=== PATIENT | male | born 1950 | race Caucasian/White ===

== ENCOUNTER 2021-05-12 14:45 | Outpatient (CLI) | payer MEDICARE, OTHER, SELFPAY ==
--- NOTE | 2021-05-12 15:00 | XR_ITS ---
WS: [id number] LATERAL LUMBAR SPINE: 3 view. Lateral radiographs are performed in upright neutral, flexion and extension to the patient's toleranc e. HISTORY: POSTLAMINECTOMY SYNDROME COMPARISON: None available. Lumbar fusion hardware extends from L2 to L5 bilaterally. No lucency around the screws or fractures w ithin the hardware. Mild increase in the lumbar lordosis. With flexion and extension there is no isaac ge in position of the hardware. Very little movement of the vertebral bodies. There is bone grafting which appears fused. Significant encroachment into the L4-5 and L5-S1 foramina. Moderate calcification in aorta. Very slight anterior wedging of L1. XR/XR lumbar spine f/e only [id number] IMPRESSION: 1. No lumbar spine fusion identified. 2. Extensive posterior lumbar fusion hardware from L2 to L5. 3. Severe bone narrowing of the L4-5 and L5-S1 foramina.
--- NOTE | 2021-05-12 15:00 | CT_ITS ---
WS: [id number] CT LUMBAR SPINE, noncontrast. HISTORY: POSTLAMINECTOMY SYNDROME TECHNIQUE: Contiguous 2.5 mm axial imaging are performed. Sagittal and coronal reformats are submitte d and reviewed. All CT scans at [facility] use at least one of these dose optimization te chniques: automated exposure control; mA and/or kV adjustment per patient size (includes targeted exa ms where dose is matched to clinical indication); or iterative reconstruction. IV contrast: None DLP: 1915.22 mGycm COMPARISON: None available. Status post lumbar fusion from L2 to L5. Bilateral laminectomy defects throughout the fusion. No luce ncy around the pedicle screws. No pedicle fracture identified. Diffuse osteopenia and diffuse disc space narrowing and desiccation with vacuum disc phenomenon at se veral levels. No fractures. Mild LEFT curvature lumbar spine. T12-L1: asymmetric disc bulging to the LEFT. Moderate LEFT foraminal narrowing and mild on the RIGHT. L1-2: 2 mm retrolisthesis of L1 with contact upon the ventral thecal sac. There is annular disc bulgi ng and osteophytic ridging. Large posterior laminectomy defect. Severe bilateral foraminal stenosis. Disc and osteophyte disease contacts the L1 and L2 nerve roots. L2-3: Diffuse osteophytic ridging with facet and ligamentum flavum hypertrophy. Large posterior chris ectomy defect. There is at least moderate bilateral foraminal stenosis. L3-4: Diffuse annular disc bulging and osteophytic ridging. Large posterior laminectomy defect. Moder ate bilateral foraminal stenosis. Bone graft is completely fused. L4-5: Diffuse annular disc bulging and osteophytic ridging. Bone grafting is noted bilaterally and co mpletely fused. Large posterior laminectomy defect. Severe bilateral foraminal stenosis. L5-S1: Mild annular disc bulging and osteophytic ridging. Facet joint osteophytes encroach into the s ubarticular recesses. Large posterior laminectomy defect. Severe bilateral subarticular recess stenos is and moderate foraminal stenosis. Atherosclerosis of the aorta. Mild narrowing of the RIGHT SI joint. CT/CT lumbar spine wo con* [id number] IMPRESSION: 1. Prior posterior lumbar fusion extending from L2 to L5 with large laminectom y defects and fusion of the bone graft material. 2. Multilevel subarticular and foraminal stenosis. 3. Moderate LEFT foraminal stenosis at T12-L1. 4. Severe bilateral foraminal stenosis at L1-2 and L4-5. 5. Severe bilateral subarticular recess stenosis and moderate foraminal stenos is at L5-S1. 6. Moderate bilateral foraminal stenosis L2-3 and L3-4.
== END 2021-05-12 14:46 | disposition home or self-care (01) ==
LOC: RADWPI 14:50
PROVIDERS: PCP Family Medicine Adult Medicine; Visit Provider Nurse Practitioner
DX: M96.1 Postlaminectomy syndrome, not elsewhere classified (principal); M43.26 Fusion of spine, lumbar region; M48.05 Spinal stenosis, thoracolumbar region; M48.061 Spinal stenosis, lumbar region without neurogenic claudication
CPT/HCPCS: 72120; 72131

== ENCOUNTER → 2021-07-07 11:51 | Outpatient (BNVA) | payer MEDICARE, OTHER, SELFPAY | PROVIDERS: PCP Family Medicine Adult Medicine; Visit Provider Urology | DX: Z85.51 Personal history of malignant neoplasm of bladder (principal); D09.0 Carcinoma in situ of bladder | CPT/HCPCS: 81003; 88112 ==

== ENCOUNTER → 2021-07-31 10:35 | Outpatient (BNVA) | payer MEDICARE, OTHER, SELFPAY | PROVIDERS: PCP Family Medicine Adult Medicine; Visit Provider Urology | DX: D09.0 Carcinoma in situ of bladder (principal) | CPT/HCPCS: 81003 ==

== ENCOUNTER → 2021-08-07 10:29 | Outpatient (BNVA) | payer MEDICARE, OTHER, SELFPAY | PROVIDERS: PCP Family Medicine Adult Medicine; Visit Provider Urology | DX: Z85.51 Personal history of malignant neoplasm of bladder (principal); D09.0 Carcinoma in situ of bladder | CPT/HCPCS: 81003 ==

== ENCOUNTER → 2021-08-14 11:03 | Outpatient (BNVA) | payer MEDICARE, OTHER, SELFPAY | PROVIDERS: PCP Family Medicine Adult Medicine; Visit Provider Urology | DX: D09.0 Carcinoma in situ of bladder (principal) | CPT/HCPCS: 81003 ==

== ENCOUNTER → 2021-11-30 08:45 | Outpatient (BNVA) | payer MEDICARE, OTHER, SELFPAY | PROVIDERS: PCP Family Medicine Adult Medicine; Visit Provider Family Medicine Adult Medicine | DX: Z00.00 Encounter for general adult medical examination without abnormal findings (principal); I25.10 Atherosclerotic heart disease of native coronary artery without angina pectoris; J44.9 Chronic obstructive pulmonary disease, unspecified; D09.0 Carcinoma in situ of bladder; Z13.6 Encounter for screening for cardiovascular disorders; K64.9 Unspecified hemorrhoids | CPT/HCPCS: 80061; 83036; 84443; 85025 ==

== ENCOUNTER → 2022-01-08 11:22 | Outpatient (BNVA) | payer MEDICARE, OTHER, SELFPAY | PROVIDERS: PCP Family Medicine Adult Medicine; Visit Provider Surgery | DX: Z11.52 Encounter for screening for COVID-19 (principal) | CPT/HCPCS: 87635 ==

== ENCOUNTER 2022-01-13 08:29 | Day surgery (SDC) | payer MEDICARE, OTHER, SELFPAY ==
[2022-01-08 13:15] VITALS: BMI 27.0
--- NOTE | 2022-01-13 09:35 | P.ANESASSM_ITS ---
Pre-Anesthetic Assessment Height/Weight: Height 1.85 m Weight 92.986 kg Preop Diagnosis: diagnostic Operation Date: 01/13/22 10:00 Proposed Procedures p Colonoscopy 85985 K59.09(Not Applicable) - Alejandro Fatima MD Was Beta Adela taken within 24 hours: N/A Was Clonidine taken within 24 hours: N/A Social Tobacco and No alcohol Exam alert, oriented x 3, clear to auscultation bilaterally and regular rate & rhythm Airway Submandibular: within normal limits Cervical ROM: within normal limits Mallampati: Class II Dentition: full (Permanent implants) Pulmonary Chronic Obstructive Pulmonary Disease CV/HEM S/P CABG METS > 4 BPH GI None reported Metabolic None reported Musc/skel DDD Neuropsych None reported Anesthetic Plan ASA status: 3 Anesthesia: Anesthesia Evaluation and General Other: I discussed with the patient risks, goals, and benefits of MAC and general anesthesia. We discussed spectrum of MAC anesthesia including conversion to general as well as possibility of recall of intraoperative stimuli including discomfort/pain. Patient agrees to proceed with MAC. Risk of > 500 ml blood loss (7ml/kg in children): No Medications/Allergies Home Medications Medication Instructions Recorded Confirmed Last Taken Type tadalafil 2.5 mg tablet (Cialis) 2.5 mg PO DAILY 04/10/21 01/08/22 Unknown History oxycodone-acetaminophen 10 mg-325 1 tab PO Q6H tab 07/07/21 01/08/22 Unknown History mg tablet (Percocet) ascorbic acid (vitamin C) 1,000 mg PO DAILY 08/18/21 01/08/22 Unknown History new wave 1 tab PO DAILY 08/18/21 01/08/22 Unknown History tamsulosin 0.4 mg capsule (Flomax) 0.4 mg PO DAILY #90 cap 08/18/21 01/08/22 Unknown Rx tizanidine 4 mg capsule 4 mg PO BID PRN #60 cap 08/18/21 01/08/22 Unknown Rx diclofenac sodium 1 % topical gel 2 g TOPICAL QID 11/30/21 01/08/22 Unknown History (Voltaren Arthritis Pain) lactulose 10 gram/15 mL (15 mL) 15 ml PO BID 7 Days #210 ml 12/15/21 01/08/22 Unknown Rx oral solution fluticasone propionate 50 See Rx Instructions .ROUTE 12/29/21 01/08/22 Unknown Rx mcg/actuation nasal .COMPLEX #48 g spray,suspension Allergies Allergy/AdvReac Type Severity Reaction Status Date / Time No Known Allergies Allergy Verified 01/08/22 13:17 [facility] Anesthesia Medical History Allergic rhinitis BPH (benign prostatic hyperplasia) CAD (coronary atherosclerotic disease) 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 No muscle involvement. BCG induction therapy with resulting granulomatous cystitis on biopsy. At first evaluation June 2021 here had received no maintenance therapy as of yet. Chronic constipation Chronic low back pain COPD (chronic obstructive pulmonary disease) Dupuytren's contracture of right hand Hemorrhoids Migraine Osteoarthritis involving multiple joints on both sides of body Pre-diabetes Hemoglobin A1c on 11/30/2021 was 5.7 Spondylolysis Surgical History History of back surgery History of colonoscopy History of ear surgery Hx of hand surgery S/P CABG (coronary artery bypass graft) Family History Father , AT AGE 74 HEART ATTACK CAD (coronary artery disease) Mother , AT AGE 93 VAGINAL CANCER Cancer Social History Smoking and tobacco status: current every day smoker (E-CIG 3% NICOTINE) e- cigarettes Alcohol intake: current Alcohol intake frequency: holidays/special occasions only Marital status: Number of children: 2 Number of grandchildren: 6 Current occupational status: retired History of recent travel: No Data Anesthesia Cardiac Studies: No Data to Display
[2022-01-13 09:42] VITALS: BP 128/80; PULSE 74; RESP 18; TEMP 36.4; O2SAT 97
[2022-01-13] MEDS: sodium chloride 0.9% 1,000 ML 30 ML IV (09:45)
--- NOTE | 2022-01-13 10:09 | P.HP_ITS ---
Same Day Surgery H&P Indication for Procedure/HPI DATE OF PROCEDURE: January 13, 2022 CHIEF COMPLAINT/INDICATIONFOR SURGICAL PROCEDURE: screening PREOP DIAGNOSIS: diagnostic PLANNED PROCEDURE: Operation Date: 01/13/22 10:00 Proposed Procedures p Colonoscopy 72721 K59.09(Not Applicable) - Alejandro Fatima MD Medications/Allergies* Home Medications Medication Instructions Recorded Confirmed Type tadalafil 2.5 mg tablet (Cialis) 2.5 mg PO DAILY 04/10/21 01/08/22 History oxycodone-acetaminophen 10 mg-325 1 tab PO Q6H tab 07/07/21 01/08/22 History mg tablet (Percocet) ascorbic acid (vitamin C) 1,000 mg PO DAILY 08/18/21 01/08/22 History new wave 1 tab PO DAILY 08/18/21 01/08/22 History diclofenac sodium 1 % topical gel 2 g TOPICAL QID 11/30/21 01/08/22 History (Voltaren Arthritis Pain) Allergies/Adverse Reactions Allergy/AdvReac Type Severity Reaction Status Date / Time No Known Allergies Allergy Verified 01/13/22 09:43 Current Medications: Generic Name Dose Route Start Last Admin Trade Name Freq PRN Reason Stop Dose Admin Sodium Chloride 1,000 mls @ 30 mls/hr 01/13/22 08:45 01/13/22 09:45 Sodium Chloride 0.9% IV 01/14/22 08:44 30 mls/hr .Q24H DAR Administration Pertinent History/Comorbid Conditions* Medical History (Updated 12/29/21 @ 08:51 by Vishnu Bender MD) Allergic rhinitis BPH (benign prostatic hyperplasia) CAD (coronary atherosclerotic disease) 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 No muscle involvement. BCG induction therapy with resulting granulomatous cystitis on biopsy. At first evaluation June 2021 here had received no maintenance therapy as of yet. Chronic constipation Chronic low back pain COPD (chronic obstructive pulmonary disease) Dupuytren's contracture of right hand Hemorrhoids Migraine Osteoarthritis involving multiple joints on both sides of body Pre-diabetes Hemoglobin A1c on 11/30/2021 was 5.7 Spondylolysis Surgical History (Updated 12/15/21 @ 09:16 by Alejandro Fatima MD) History of back surgery History of colonoscopy History of ear surgery Hx of hand surgery S/P CABG (coronary artery bypass graft) Family History (Updated 07/07/21 @ 09:39 by PRAFUL Nuñez) Father, AT AGE 74 HEART ATTACK Mother, AT AGE 93 VAGINAL CANCER CAD (coronary artery disease) Father Cancer Mother Social History Smoking and tobacco status: current every day smoker (E-CIG 3% NICOTINE) e- cigarettes Alcohol intake: current Alcohol intake frequency: holidays/special occasions only Marital status: Number of children: 2 Number of grandchildren: 6 Current occupational status: retired History of recent travel: No Pertinent Exam Findings alert, oriented x 3 and regular rate & rhythm Recommendations Surgery/Procedure today Coding Level of Care Code Acute 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
[2022-01-13 10:49] VITALS: BP 89/64; PULSE 61; RESP 14; TEMP 36.7; O2SAT 96
[2022-01-13 11:05] VITALS: BP 117/77; PULSE 63; RESP 18
--- NOTE | 2022-01-13 16:17 | ANE.PACU2 ---
Inpatient post-anesthesia follow up: Airway intact: Yes Vital signs: Temperature 98.1 F Pulse Rate 63 Respiratory Rate 18 Blood Pressure 117/77 Pulse Oximetry 96 Oxygen Delivery Me thod Room Air Oxygen Flow Rate 2 Fraction of Inspir ed Oxygen Hydration adequate: Yes Nausea and vomiting: No Pain level: 1 Mental status: Baseline
== END 2022-01-13 11:16 | disposition home or self-care (01) ==
PROVIDERS: PCP Family Medicine Adult Medicine; Visit Provider Surgery
PROC: 0DJD8ZZ Inspection of Lower Intestinal Tract, Via Natural or Artificial Opening Endoscopic (ICD-10-PCS; CPT 45330; 2022-01-13 10:00)
DX: Z12.11 Encounter for screening for malignant neoplasm of colon (principal); K59.09 Other constipation; J44.9 Chronic obstructive pulmonary disease, unspecified; Z95.1 Presence of aortocoronary bypass graft; N40.0 Benign prostatic hyperplasia without lower urinary tract symptoms; I25.10 Atherosclerotic heart disease of native coronary artery without angina pectoris; R73.03 Prediabetes; F17.210 Nicotine dependence, cigarettes, uncomplicated
CPT/HCPCS: 45330; G0121; J7030

== ENCOUNTER 2022-06-28 12:42 | Outpatient (CLI) | payer MEDICARE, OTHER, SELFPAY ==
--- NOTE | 2022-06-28 13:30 | USCV_ITS ---
Kolton Dial Age: 71 Gender: M : 1950 Exam Date: 06/28/2022 13:01 Ordering Phys: Vishnu Bender MD Technologist: Sathish Hanson [place] [facility] [place]: left neck pain Risk Factors: Previous Vascular Surgery: Right Brachial BP: / Left Brachial BP: / Right Left Velocity (cm/s) Spectral Plaque Velocity (cm/s) Spectral Plaque Syst/Diast Broadening Syst/Diast Broadening 121.30/23.20 Prox CCA 85.30 / 21.00 75.00/ 20.90 Mid CCA 71.10 / 23.00 59.80/ 18.60 Distal CCA 55.90 / 21.00 63.70/ 20.20 Prox ICA 74.60 / 24.10 96.30/ 41.90 Mid ICA 74.60 / 27.20 88.60/ 32.60 Distal ICA 69.10 / 26.40 82.30 ECA 81.60 0.79 ICA/CCA 0.87 Antegrade Vertebral Antegrade 45.90/ 17.10 cm/s 34.60/ 10.30 cm/s Tri Subclavian Tri 74.30 82.20 CONCLUSIONS Right ICA stenosis <50%. Moderate atheromatous plaque right carotid bulb/ICA. Left ICA stenosis <50%. Moderate atheromatous plaque left carotid bulb/ICA. Normal antegrade Doppler flow noted in the right vertebral artery. Normal antegrade Doppler flow noted in the left vertebral artery. Randy Sifuentes MD (Electronically Signed) Final Date: 28 June 2022 13:43 S
== END 2022-06-28 12:43 | disposition home or self-care (01) ==
PROVIDERS: PCP Family Medicine Adult Medicine; Visit Provider Family Medicine Adult Medicine
DX: R09.89 Other specified symptoms and signs involving the circulatory and respiratory systems (principal); M54.2 Cervicalgia; I65.23 Occlusion and stenosis of bilateral carotid arteries
CPT/HCPCS: 93880

== ENCOUNTER → 2022-10-06 09:11 | Outpatient (BNVA) | payer MEDICARE, OTHER, SELFPAY | PROVIDERS: PCP Family Medicine Adult Medicine; Visit Provider Family Medicine Adult Medicine | DX: R73.03 Prediabetes (principal); I25.10 Atherosclerotic heart disease of native coronary artery without angina pectoris; K64.9 Unspecified hemorrhoids | CPT/HCPCS: 80053; 83036; 84443; 85025 ==

== ENCOUNTER → 2022-12-30 08:24 | Outpatient (BNVA) | payer MEDICARE, OTHER, SELFPAY | PROVIDERS: PCP Family Medicine Adult Medicine; Visit Provider Family Medicine Adult Medicine | DX: N40.1 Benign prostatic hyperplasia with lower urinary tract symptoms (principal); N13.8 Other obstructive and reflux uropathy; D09.0 Carcinoma in situ of bladder; K64.9 Unspecified hemorrhoids; R73.03 Prediabetes; I25.10 Atherosclerotic heart disease of native coronary artery without angina pectoris; M15.9 Polyosteoarthritis, unspecified; G89.29 Other chronic pain; M25.552 Pain in left hip | CPT/HCPCS: 80053; 80061; 82310; 83036; 83970; 85025 ==

== ENCOUNTER → 2023-01-26 11:37 | Outpatient (BNVA) | payer MEDICARE, OTHER, SELFPAY | PROVIDERS: PCP Family Medicine Adult Medicine; Visit Provider Emergency Medicine | DX: N19 Unspecified kidney failure (principal); R59.9 Enlarged lymph nodes, unspecified; R22.1 Localized swelling, mass and lump, neck; C67.9 Malignant neoplasm of bladder, unspecified; R59.0 Localized enlarged lymph nodes; R30.0 Dysuria | CPT/HCPCS: 80053; 81000; 85025 ==

== ENCOUNTER 2023-02-14 06:20 | Outpatient (CLI) | payer MEDICARE, OTHER, SELFPAY ==
--- NOTE | 2023-02-14 07:00 | CT_ITS ---
WS: [id number] CT CHEST, ABDOMEN, AND PELVIS TECHNIQUE: Contrast-enhanced CT of the chest, abdomen, and pelvis with coronal and sagittal reformatt ed images. CLINICAL INFORMATION: bladder cancer, enlarged lymph nodes COMPARISON: None. DLP: 828.[address] scans at [facility] use at least one of these dose optimization techniques: automated e xposure control; mA and/or kV adjustment per patient size (includes targeted exams where dose is matc hed to clinical indication); or iterative reconstruction. CT CHEST: Ectatic ascending thoracic aorta measuring 3.5 CM. Enlarged lymph nodes in the LEFT lower neck descri bed on the neck CT. This extends to the thoracic inlet. Enlarged prevascular and anterior mediastinal lymph nodes. No axillary lymphadenopathy. Coronary calcification. Prior sternotomy. Chronic emphysematous changes. No acute pulmonary infiltrates. Subsegmental atelectasis in the lung b ases. CT ABDOMEN AND PELVIS: Diffuse fatty infiltration the liver. Mild intrahepatic biliary ductal dilatation. Normal portal vein and splenic vein. A few tiny hepatic cysts. Some are too small characterize but. Common bile duct me asures 10 mm. Fatty atrophy of the pancreas. Splenic artery calcification. Normal spleen. Normal GE j unction. Enlarged LEFT periaortic and retroperitoneal lymph nodes measuring 2.4 CM. Enlarged aortocaval lymph node measuring 2.4 CM. Adrenal glands are normal. Small renal cysts. No hydronephrosis in either kidn ey. Enlarged heterogeneously enhancing prostate. Peripherally enhancing low-attenuation prostate nodules or possibly multifocal abscess. Recommend correlation for prostatitis versus neoplasm. Bladder otherw ise appears normal. Markedly enlarged iliac and pelvic lymphadenopathy. This is worse in the RIGHT. R IGHT pelvic lymph node measures 4.1 CM. RIGHT iliac lymphadenopathy measuring 2.8 cm. Postoperative changes pedicle screw fixation lumbar spine L2-L5 with laminectomy defects. CT/CT chest abdpel w/*[id number] IMPRESSION: 1. Prostate with multifocal peripheral enhancing nodules suspicious for neopla sm. Superimposed prostatitis with multifocal abscess is an additional considera tion. Recommend clinical correlation. 2. Periaortic, aortocaval, RIGHT greater than LEFT iliac and pelvic lymphadeno orlando described above. 3. Diffuse fatty infiltration liver with mild intrahepatic biliary dilatation. Dilatation common bile duct measuring 10 mm. This can be followed up with MRCP . 4. Bladder appears normal. 5. Enlarged prevascular and anterior mediastinal lymph nodes.
[2023-02-14] MEDS: iohexol 350 mg/mL 500 mL Btl (per mL) IV ×2 (07:02→07:14)
--- NOTE | 2023-02-14 07:30 | CT_ITS ---
WS: [id number] CT NECK TECHNIQUE: Contrast-enhanced CT of the neck with coronal and sagittal reformatted images. CLINICAL INFORMATION: neck mass bladder cancer. COMPARISON: None. DLP: 168.[address] scans at [facility] use at least one of these dose optimization techniques: automated e xposure control; mA and/or kV adjustment per patient size (includes targeted exams where dose is matc hed to clinical indication); or iterative reconstruction. FINDINGS: Enlarged peripherally enhancing LEFT posterior triangle and supraclavicular lymph nodes. This corresp onds with area of palpable concern. Largest lymph nodes measure approximately 6.7 CM. Additional infr aclavicular lymph nodes. Prominent anterior mediastinal lymph node measuring 6 mm. Findings suspiciou s for metastatic disease. Enlarged lymph nodes extend to the thoracic inlet. RIGHT mastoid air cells well aerated.Paranasal Sinuses are well aerated. No evidence of supraglottic or glottic mass. Parotid glands are normal. Normal submandibular glands. Straightening of the normal cervical lordosis. Moderate spondylitic changes cervical spine. CT/CT neck w con* [id number] IMPRESSION: Enlarged heterogeneously enhancing lymph nodes in the area of palpable concern extends supraclavicular and infraclavicular to the thoracic inlet. Given histor y findings are suspicious for metastatic disease.
== END 2023-02-14 06:21 | disposition home or self-care (01) ==
LOC: RAD 06:22
PROVIDERS: PCP Family Medicine Adult Medicine; Visit Provider Emergency Medicine
DX: C67.9 Malignant neoplasm of bladder, unspecified (principal); K76.0 Fatty (change of) liver, not elsewhere classified; R59.0 Localized enlarged lymph nodes
CPT/HCPCS: 70491; 71260; 74177; Q9967

== ENCOUNTER → 2023-02-22 14:24 | Outpatient (BNVA) | payer MEDICARE, OTHER, SELFPAY | PROVIDERS: PCP Family Medicine Adult Medicine; Visit Provider Family Medicine Adult Medicine | DX: D09.0 Carcinoma in situ of bladder (principal); R59.9 Enlarged lymph nodes, unspecified | CPT/HCPCS: 88307; 88341; 88342 ==

== ENCOUNTER → 2023-03-04 07:19 | Outpatient (BNVA) | payer MEDICARE, OTHER, SELFPAY | PROVIDERS: PCP Family Medicine Adult Medicine; Visit Provider Family Medicine Adult Medicine | DX: R31.9 Hematuria, unspecified (principal); N40.3 Nodular prostate with lower urinary tract symptoms; N13.8 Other obstructive and reflux uropathy; C77.0 Secondary and unspecified malignant neoplasm of lymph nodes of head, face and neck; N40.1 Benign prostatic hyperplasia with lower urinary tract symptoms | CPT/HCPCS: 81000; 86140; G0103 ==

== ENCOUNTER 2023-03-09 10:47 | Oncology outpatient (recurring) (ONCR) | payer MEDICARE, OTHER, SELFPAY ==
[2023-03-09 13:01] LABS: Add Urine Microscopic? YES; Bilirubin Urine Neg (Negative); Blood Urine 3+ (Negative); Glucose Urine UA Norm (Normal); Ketones Urine Negative (Negative); Leukocyte Esterase Urine Negative (Negative); Nitrate Urine Negative (Negative); Protein Urine Neg (Negative); Specific Gravity, Urine 1.015 (1.005-1.030); Urine Appearance Clear (CLEAR); Urine Color Yellow (Yellow); Urobilinogen Urine Neg (Negative); pH Urine 5 (5-7)
[2023-03-09 13:24] LABS: Add Urine Culture? Yes; Bacteria Urine TRACE /hpf; Mucus Urine TRACE /hpf; RBC Urine 15-25 /hpf (0-2); Squamous Epithelial Cell Urine 0-4 /hpf (0-5); WBC Urine 0-4 /hpf (0-5)
[2023-03-09 13:46] LABS: Carcinoembryonic Antigen 2.8 ng/mL (0.0-4.7); HCG Tumor Marker 1 mIU/mL (0-3); Tumor Marker Alpha Fetoprotein 3.4 ng/mL (0-8.3)
[2023-03-09 14:19] LABS: Cancer Antigen 19 9 4.76 U/mL (0-35)
== END 2023-03-27 23:59 | disposition home or self-care (01) ==
PROVIDERS: PCP Family Medicine Adult Medicine; Visit Provider Internal Medicine Hematology & Oncology
DX: C77.0 Secondary and unspecified malignant neoplasm of lymph nodes of head, face and neck (principal); C67.9 Malignant neoplasm of bladder, unspecified; Z90.6 Acquired absence of other parts of urinary tract; N40.1 Benign prostatic hyperplasia with lower urinary tract symptoms; R30.0 Dysuria; N41.8 Other inflammatory diseases of prostate; K76.0 Fatty (change of) liver, not elsewhere classified; K82.8 Other specified diseases of gallbladder; R97.8 Other abnormal tumor markers; Z79.2 Long term (current) use of antibiotics; Z79.899 Other long term (current) drug therapy
CPT/HCPCS: 36415; 81001; 82105; 82378; 84702; 86301; 87086; 99204

== ENCOUNTER 2023-04-07 10:45 | Oncology outpatient (recurring) (ONCR) | payer MEDICARE, OTHER, SELFPAY ==
[2023-04-07 09:44] LABS: Basophils % 0.9 %; Eosinophils # 0.2 10^3/uL (0.0-0.8); Eosinophils % 3.3 %; Hematocrit 41.9 % (42.0-52.0); Hemoglobin 13.2 g/dL (11.7-16.6); Lymphocytes # 0.8 10^3/uL (0.8-4.8); Lymphocytes % 17.6 %; Mean Corpuscular HGB Conc 31.5 g/dL (30.0-36.0); Mean Corpuscular Hemoglobin 30.1 pg (28.0-34.0); Mean Corpuscular Volume 95.7 fl (80-94); Mean Platelet Volume 10.1 fL (7.4-10.4); Monocytes # 0.5 10^3/uL (0.2-0.9); Monocytes % 10.1 %; Neutrophils # 3.08 10^3/uL (1.8-7.7); Neutrophils % 67.7 %; Nucleated Red Blood Cells % 0 %; Platelet Count 226 10^3/cmm (130-400); Red Blood Count 4.38 10^6/uL (4.1-5.3); Red Cell Distribution Width 12.3 % (12.1-15.1); White Blood Count 4.6 10^3/uL (4.0-10.0)
[2023-04-07 09:56] LABS: Alanine Aminotransferase 9 U/L (0-41); Albumin Level 4.1 g/dL (3.5-5.2); Alkaline Phosphatase 87 U/L (40-130); Anion Gap 11.5 (5-19); Aspartate Amino Transferase 13 U/L (0-40); Blood Urea Nitrogen 20 mg/dL (8-23); Calcium 9.1 mg/dL (8.5-10.5); Carbon Dioxide 27 mmol/L (22-29); Chloride 102 mmol/L (98-107); Globulin 2.8 g/dL (1.3-4.6); Glucose 86 mg/dL (65-115); Osmolality Calculated 284 mOsm/kg (285-295); Potassium 4.5 mmol/L (3.5-5.1); Sodium 136 mmol/L (136-145); Total Bilirubin 0.3 mg/dL (0.15-1.2); Total Protein 6.9 g/dL (6.6-8.7)
== END 2023-04-27 23:59 | disposition home or self-care (01) ==
PROVIDERS: PCP Family Medicine Adult Medicine; Visit Provider Internal Medicine Hematology & Oncology
DX: C67.9 Malignant neoplasm of bladder, unspecified (principal); C77.8 Secondary and unspecified malignant neoplasm of lymph nodes of multiple regions; C68.8 Malignant neoplasm of overlapping sites of urinary organs; R39.198 Other difficulties with micturition; R30.0 Dysuria; F17.210 Nicotine dependence, cigarettes, uncomplicated
CPT/HCPCS: 36415; 80053; 85025; 99214

== ENCOUNTER 2023-05-10 08:13 | Oncology outpatient (recurring) (ONCR) | payer MEDICARE, OTHER, SELFPAY ==
[2023-05-10 08:29] VITALS: BP 115/82; PULSE 88; RESP 18; TEMP 36.1; O2SAT 96
[2023-05-10 08:45] LABS: Basophils % 0.4 %; Eosinophils # 0.1 10^3/uL (0.0-0.8); Eosinophils % 2.6 %; Hematocrit 38.8 % (42.0-52.0); Lymphocytes # 0.8 10^3/uL (0.8-4.8); Lymphocytes % 18.2 %; Mean Corpuscular HGB Conc 33.5 g/dL (30.0-36.0); Mean Corpuscular Hemoglobin 31.2 pg (28.0-34.0); Monocytes # 0.4 10^3/uL (0.2-0.9); Monocytes % 7.8 %; Neutrophils # 3.25 10^3/uL (1.8-7.7); Neutrophils % 70.4 %; Nucleated Red Blood Cells % 0 %; Platelet Count 219 10^3/cmm (130-400); Red Blood Count 4.17 10^6/uL (4.1-5.3); Red Cell Distribution Width 13.2 % (12.1-15.1); White Blood Count 4.6 10^3/uL (4.0-10.0)
[2023-05-10 09:20] LABS: Alanine Aminotransferase 13 U/L (0-41); Albumin Level 3.8 g/dL (3.5-5.2); Alkaline Phosphatase 86 U/L (40-130); Anion Gap 15.2 (5-19); Aspartate Amino Transferase 16 U/L (0-40); Blood Urea Nitrogen 21 mg/dL (8-23); Calcium 9.2 mg/dL (8.5-10.5); Carbon Dioxide 23 mmol/L (22-29); Chloride 103 mmol/L (98-107); Globulin 2.9 g/dL (1.3-4.6); Glucose 92 mg/dL (65-115); Immunoglobulin IGG 784 mg/dL (700-1600); Osmolality Calculated 287 mOsm/kg (285-295); Potassium 4.2 mmol/L (3.5-5.1); Sodium 137 mmol/L (136-145); Thyroid Stimulating Hormone 1.43 uIU/mL (0.27-4.20); Total Bilirubin 0.4 mg/dL (0.15-1.2); Total Protein 6.7 g/dL (6.6-8.7)
[2023-05-10 09:27] LABS: Cortisol Random 11.83 ug/dL (2.47-19.5); Hepatitis A Antibody IgM Non-Reactive (Nonreactive); Hepatitis B Core AB, Total Non-Reactive (Nonreactive); Hepatitis B Surface Antigen Non-Reactive (Nonreactive); Hepatitis C Virus Antibody Non-Reactive (Nonreactive)
[2023-05-10 09:32] LABS: Hepatitis B Surface AB < 3.5 (11.5-1000)
[2023-05-10] MEDS: sodium chloride 0.9% 250 ML 75 ML IV (11:23)
[2023-05-10] MEDS: acetaminophen 325 mg Tablet 650 MG PO (11:24)
[2023-05-10] MEDS: diphenhydrAMINE 25 mg Capsule PO (11:24)
[2023-05-10] MEDS: famotidine 20 mg/2 mL INJ IVP (11:26)
[2023-05-10] MEDS: ondansetron 2 mg/ML SDV 2 mL 8 MG IVP (11:27)
[2023-05-10] MEDS: pembrolizumab 200 MG in sodium chloride 0.9% 250 ML 516 MG IV (12:03)
[2023-05-10] MEDS: [UNRECOGNIZED DRUG - MIXTURE] 500 MG IV (12:49)
[2023-05-10 13:30] VITALS: BP 113/70; PULSE 65; TEMP 36.2; O2SAT 95
== END 2023-05-10 23:59 | disposition home or self-care (01) ==
PROVIDERS: PCP Family Medicine Adult Medicine; Visit Provider Internal Medicine Hematology & Oncology
DX: C67.9 Malignant neoplasm of bladder, unspecified (principal); C77.8 Secondary and unspecified malignant neoplasm of lymph nodes of multiple regions; C67.8 Malignant neoplasm of overlapping sites of bladder; F17.210 Nicotine dependence, cigarettes, uncomplicated; Z79.899 Other long term (current) drug therapy
CPT/HCPCS: 80053; 82533; 82784; 84443; 85025; 86705; 86706; 86709; 86803; 87340; 96375; 96413; 96417; 99215; J1100; J1642; J2405; J3490; J7050; J9177; J9271

== ENCOUNTER 2023-05-17 09:56 | Oncology outpatient (recurring) (ONCR) | payer MEDICARE, OTHER, SELFPAY ==
[2023-05-16 14:01] VITALS: BP 118/81; PULSE 97; RESP 18; TEMP 36.7; O2SAT 95
[2023-05-16 14:10] LABS: Basophils % 0.5 %; Eosinophils # 0.2 10^3/uL (0.0-0.8); Eosinophils % 3.1 %; Hemoglobin 12.6 g/dL (11.7-16.6); Lymphocytes # 0.9 10^3/uL (0.8-4.8); Mean Corpuscular HGB Conc 32.3 g/dL (30.0-36.0); Mean Corpuscular Hemoglobin 30.3 pg (28.0-34.0); Mean Corpuscular Volume 93.8 fl (80-94); Monocytes # 0.5 10^3/uL (0.2-0.9); Monocytes % 8.7 %; Neutrophils # 4.42 10^3/uL (1.8-7.7); Neutrophils % 72.9 %; Nucleated Red Blood Cells % 0 %; Platelet Count 216 10^3/cmm (130-400); Red Blood Count 4.16 10^6/uL (4.1-5.3); Red Cell Distribution Width 13.1 % (12.1-15.1); White Blood Count 6.1 10^3/uL (4.0-10.0)
[2023-05-16 14:38] LABS: Alanine Aminotransferase 18 U/L (0-41); Albumin Level 3.7 g/dL (3.5-5.2); Alkaline Phosphatase 87 U/L (40-130); Anion Gap 15.2 (5-19); Aspartate Amino Transferase 21 U/L (0-40); Blood Urea Nitrogen 22 mg/dL (8-23); Calcium 9.3 mg/dL (8.5-10.5); Carbon Dioxide 25 mmol/L (22-29); Chloride 104 mmol/L (98-107); Glucose 100 mg/dL (65-115); Osmolality Calculated 293 mOsm/kg (285-295); Potassium 4.2 mmol/L (3.5-5.1); Sodium 140 mmol/L (136-145); Thyroid Stimulating Hormone 0.86 uIU/mL (0.27-4.20); Total Bilirubin 0.5 mg/dL (0.15-1.2); Total Protein 6.7 g/dL (6.6-8.7)
[2023-05-17 11:03] VITALS: BP 125/74; PULSE 62; RESP 18; TEMP 36.6; O2SAT 95
[2023-05-17] MEDS: acetaminophen 325 mg Tablet 650 MG PO (11:30)
[2023-05-17] MEDS: diphenhydrAMINE 25 mg Capsule PO (11:30)
[2023-05-17] MEDS: sodium chloride 0.9% 250 ML 75 ML IV (11:30)
[2023-05-17] MEDS: famotidine 20 mg/2 mL INJ IVP (11:32)
[2023-05-17] MEDS: palonosetron 0.25 mg/5 mL SDV IVP (11:35)
[2023-05-17] MEDS: [UNRECOGNIZED DRUG - MIXTURE] 500 MG IV (12:20)
[2023-05-17 13:06] VITALS: BP 149/70; PULSE 65; RESP 16; TEMP 36; O2SAT 95
== END 2023-05-17 23:59 | disposition home or self-care (01) ==
PROVIDERS: Nurse Practitioner Family; PCP Family Medicine Adult Medicine; Visit Provider Internal Medicine Hematology & Oncology
DX: C67.8 Malignant neoplasm of overlapping sites of bladder (principal); C77.8 Secondary and unspecified malignant neoplasm of lymph nodes of multiple regions; Z79.899 Other long term (current) drug therapy; Z51.11 Encounter for antineoplastic chemotherapy; Z45.2 Encounter for adjustment and management of vascular access device
CPT/HCPCS: 36591; 80053; 84443; 85025; 96367; 96375; 96413; 99214; J1100; J1642; J2469; J3490; J7050; J9177

== ENCOUNTER 2023-06-01 07:41 | Oncology outpatient (recurring) (ONCR) | payer MEDICARE, OTHER, SELFPAY ==
[2023-06-01 07:42] VITALS: BP 118/78; PULSE 93; RESP 18; TEMP 36.2; O2SAT 96
[2023-06-01 07:55] LABS: Basophils # 0.1 10^3/uL (0.0-0.1); Basophils % 1.3 %; Eosinophils # 0.1 10^3/uL (0.0-0.8); Eosinophils % 3.5 %; Hematocrit 37.9 % (42.0-52.0); Hemoglobin 12.5 g/dL (11.7-16.6); Lymphocytes # 1.1 10^3/uL (0.8-4.8); Lymphocytes % 30.1 %; Mean Platelet Volume 10.3 fL (7.4-10.4); Monocytes # 0.4 10^3/uL (0.2-0.9); Monocytes % 11.7 %; Neutrophils # 1.97 10^3/uL (1.8-7.7); Neutrophils % 52.3 %; Nucleated Red Blood Cells % 0 %; Platelet Count 244 10^3/cmm (130-400); Red Blood Count 4.03 10^6/uL (4.1-5.3); Red Cell Distribution Width 13.2 % (12.1-15.1); White Blood Count 3.8 10^3/uL (4.0-10.0)
[2023-06-01 09:10] LABS: Alanine Aminotransferase 16 U/L (0-41); Albumin Level 3.6 g/dL (3.5-5.2); Alkaline Phosphatase 80 U/L (40-130); Anion Gap 13.3 (5-19); Aspartate Amino Transferase 15 U/L (0-40); Blood Urea Nitrogen 16 mg/dL (8-23); Calcium 8.9 mg/dL (8.5-10.5); Carbon Dioxide 25 mmol/L (22-29); Chloride 104 mmol/L (98-107); Globulin 2.7 g/dL (1.3-4.6); Glucose 99 mg/dL (65-115); Osmolality Calculated 287 mOsm/kg (285-295); Potassium 4.3 mmol/L (3.5-5.1); Sodium 138 mmol/L (136-145); Thyroid Stimulating Hormone 4.16 uIU/mL (0.27-4.20); Total Bilirubin 0.3 mg/dL (0.15-1.2); Total Protein 6.3 g/dL (6.6-8.7)
[2023-06-01 09:48] VITALS: BP 120/76; PULSE 75; RESP 18; TEMP 36.4; O2SAT 99
[2023-06-01] MEDS: sodium chloride 0.9% 250 ML 75 ML IV (10:03)
[2023-06-01] MEDS: ondansetron 2 mg/ML SDV 2 mL 8 MG IVP (10:04)
[2023-06-01] MEDS: diphenhydrAMINE 25 mg Capsule PO (10:08)
[2023-06-01] MEDS: acetaminophen 325 mg Tablet 650 MG PO (10:08)
[2023-06-01] MEDS: famotidine 20 mg/2 mL INJ IVP (10:11)
[2023-06-01] MEDS: pembrolizumab 200 MG in sodium chloride 0.9% 250 ML 516 MG IV (10:39)
[2023-06-01] MEDS: [UNRECOGNIZED DRUG - MIXTURE] 500 MG IV (11:21)
[2023-06-01 12:27] VITALS: PULSE 68; RESP 16; TEMP 35.8; O2SAT 96
== END 2023-06-01 23:59 | disposition home or self-care (01) ==
PROVIDERS: Nurse Practitioner Family; PCP Family Medicine Adult Medicine; Visit Provider Internal Medicine Hematology & Oncology
DX: C67.8 Malignant neoplasm of overlapping sites of bladder (principal); Z90.6 Acquired absence of other parts of urinary tract; C77.8 Secondary and unspecified malignant neoplasm of lymph nodes of multiple regions; N40.2 Nodular prostate without lower urinary tract symptoms; Z51.12 Encounter for antineoplastic immunotherapy; D72.819 Decreased white blood cell count, unspecified; Z79.899 Other long term (current) drug therapy
CPT/HCPCS: 80053; 84443; 85025; 96367; 96375; 96413; 96417; 99214; J1100; J1642; J2405; J3490; J7050; J9177; J9271

== ENCOUNTER 2023-06-08 09:35 | Oncology outpatient (recurring) (ONCR) | payer MEDICARE, OTHER, SELFPAY ==
[2023-06-08 09:33] VITALS: BP 119/76; PULSE 88; RESP 18; TEMP 36.5; O2SAT 95
[2023-06-08 09:46] LABS: Basophils % 0.8 %; Eosinophils # 0.1 10^3/uL (0.0-0.8); Eosinophils % 2.3 %; Hematocrit 37.6 % (42.0-52.0); Hemoglobin 12.4 g/dL (11.7-16.6); Mean Corpuscular Hemoglobin 30.3 pg (28.0-34.0); Mean Corpuscular Volume 91.9 fl (80-94); Mean Platelet Volume 10.5 fL (7.4-10.4); Monocytes # 0.5 10^3/uL (0.2-0.9); Neutrophils # 3.08 10^3/uL (1.8-7.7); Neutrophils % 65.3 %; Nucleated Red Blood Cells % 0 %; Platelet Count 210 10^3/cmm (130-400); Red Blood Count 4.09 10^6/uL (4.1-5.3); White Blood Count 4.7 10^3/uL (4.0-10.0)
[2023-06-08 10:09] LABS: Alanine Aminotransferase 25 U/L (0-41); Albumin Level 3.8 g/dL (3.5-5.2); Alkaline Phosphatase 79 U/L (40-130); Anion Gap 13.2 (5-19); Aspartate Amino Transferase 20 U/L (0-40); Blood Urea Nitrogen 17 mg/dL (8-23); Calcium 8.5 mg/dL (8.5-10.5); Carbon Dioxide 26 mmol/L (22-29); Chloride 106 mmol/L (98-107); Globulin 2.5 g/dL (1.3-4.6); Glucose 98 mg/dL (65-115); Osmolality Calculated 294 mOsm/kg (285-295); Potassium 4.2 mmol/L (3.5-5.1); Sodium 141 mmol/L (136-145); Total Bilirubin 0.5 mg/dL (0.15-1.2); Total Protein 6.3 g/dL (6.6-8.7)
[2023-06-08] MEDS: sodium chloride 0.9% 250 ML 75 ML IV (12:41)
[2023-06-08] MEDS: palonosetron 0.25 mg/5 mL SDV IVP (12:42)
[2023-06-08] MEDS: diphenhydrAMINE 25 mg Capsule PO (12:43)
[2023-06-08] MEDS: acetaminophen 325 mg Tablet 650 MG PO (12:43)
[2023-06-08] MEDS: famotidine 20 mg/2 mL INJ IVP (12:44)
[2023-06-08] MEDS: [UNRECOGNIZED DRUG - MIXTURE] 500 MG IV (13:18)
[2023-06-08 14:05] VITALS: BP 101/65; PULSE 65; RESP 18; TEMP 35.6; O2SAT 94
== END 2023-06-08 23:59 | disposition home or self-care (01) ==
PROVIDERS: PCP Family Medicine Adult Medicine; Visit Provider Internal Medicine Hematology & Oncology
DX: C67.8 Malignant neoplasm of overlapping sites of bladder (principal); C77.8 Secondary and unspecified malignant neoplasm of lymph nodes of multiple regions; Z79.899 Other long term (current) drug therapy; Z51.12 Encounter for antineoplastic immunotherapy; D70.1 Agranulocytosis secondary to cancer chemotherapy; T45.1X5A Adverse effect of antineoplastic and immunosuppressive drugs, initial encounter; R63.4 Abnormal weight loss; Z68.23 Body mass index [BMI] 23.0-23.9, adult
CPT/HCPCS: 80053; 85025; 96367; 96375; 96413; 99214; J1100; J1642; J2469; J3490; J7050; J9177

== ENCOUNTER 2023-06-22 09:30 | Oncology outpatient (recurring) (ONCR) | payer MEDICARE, OTHER, SELFPAY ==
[2023-06-22 08:57] VITALS: BP 109/75; PULSE 91; RESP 18; TEMP 36.1; O2SAT 95; BMI 22.8
[2023-06-22 09:16] LABS: Basophils % 0.8 %; Eosinophils # 0.1 10^3/uL (0.0-0.8); Eosinophils % 1.9 %; Hematocrit 37.3 % (42.0-52.0); Hemoglobin 12.4 g/dL (11.7-16.6); Lymphocytes # 0.8 10^3/uL (0.8-4.8); Lymphocytes % 22.9 %; Mean Corpuscular HGB Conc 33.2 g/dL (30.0-36.0); Mean Corpuscular Hemoglobin 30.5 pg (28.0-34.0); Mean Corpuscular Volume 91.9 fl (80-94); Mean Platelet Volume 9.9 fL (7.4-10.4); Monocytes # 0.5 10^3/uL (0.2-0.9); Monocytes % 13.4 %; Neutrophils % 59.9 %; Nucleated Red Blood Cells % 0 %; Platelet Count 291 10^3/cmm (130-400); Red Blood Count 4.06 10^6/uL (4.1-5.3); Red Cell Distribution Width 12.9 % (12.1-15.1); White Blood Count 3.7 10^3/uL (4.0-10.0)
[2023-06-22 09:50] LABS: Alanine Aminotransferase 20 U/L (0-41); Albumin Level 3.7 g/dL (3.5-5.2); Alkaline Phosphatase 76 U/L (40-130); Anion Gap 13.9 (5-19); Aspartate Amino Transferase 22 U/L (0-40); Blood Urea Nitrogen 11 mg/dL (8-23); Calcium 9.2 mg/dL (8.5-10.5); Carbon Dioxide 25 mmol/L (22-29); Chloride 103 mmol/L (98-107); Globulin 2.8 g/dL (1.3-4.6); Glucose 99 mg/dL (65-115); Osmolality Calculated 285 mOsm/kg (285-295); Potassium 3.9 mmol/L (3.5-5.1); Sodium 138 mmol/L (136-145); Total Bilirubin 0.4 mg/dL (0.15-1.2); Total Protein 6.5 g/dL (6.6-8.7)
[2023-06-22] MEDS: ondansetron 2 mg/ML SDV 2 mL 8 MG IVP (11:59)
[2023-06-22] MEDS: sodium chloride 0.9% 250 ML 75 ML IV (11:59)
[2023-06-22] MEDS: diphenhydrAMINE 25 mg Capsule PO (12:00)
[2023-06-22] MEDS: famotidine 20 mg/2 mL INJ IVP (12:00)
[2023-06-22] MEDS: acetaminophen 325 mg Tablet 650 MG PO (12:00)
[2023-06-22] MEDS: pembrolizumab 200 MG in sodium chloride 0.9% 250 ML 516 MG IV (12:28)
[2023-06-22 13:55] VITALS: BP 107/66; PULSE 67; RESP 16; TEMP 36.3; O2SAT 99
== END 2023-06-22 23:59 | disposition home or self-care (01) ==
PROVIDERS: PCP Family Medicine Adult Medicine; Visit Provider Internal Medicine Hematology & Oncology
DX: Z51.12 Encounter for antineoplastic immunotherapy (principal); C67.9 Malignant neoplasm of bladder, unspecified; C77.8 Secondary and unspecified malignant neoplasm of lymph nodes of multiple regions; C67.8 Malignant neoplasm of overlapping sites of bladder; Z51.11 Encounter for antineoplastic chemotherapy; D72.819 Decreased white blood cell count, unspecified; R53.0 Neoplastic (malignant) related fatigue; R63.0 Anorexia; Z68.22 Body mass index [BMI] 22.0-22.9, adult; F17.210 Nicotine dependence, cigarettes, uncomplicated; Z79.899 Other long term (current) drug therapy
CPT/HCPCS: 80053; 84443; 85025; 96367; 96375; 96413; 96417; 99214; J1100; J1642; J2405; J3490; J7050; J9177; J9271

== ENCOUNTER 2023-06-29 08:49 | Oncology outpatient (recurring) (ONCR) | payer MEDICARE, OTHER, SELFPAY ==
[2023-06-29 08:46] VITALS: BMI 26.0
[2023-06-29 08:48] VITALS: BP 110/72; PULSE 91; RESP 16; TEMP 36.4; O2SAT 94
[2023-06-29 08:58] LABS: Basophils # 0.1 10^3/uL (0.0-0.1); Eosinophils % 0.4 %; Hemoglobin 12.9 g/dL (11.7-16.6); Lymphocytes # 0.9 10^3/uL (0.8-4.8); Lymphocytes % 16.3 %; Mean Corpuscular HGB Conc 33.1 g/dL (30.0-36.0); Mean Corpuscular Hemoglobin 30.4 pg (28.0-34.0); Mean Platelet Volume 10.4 fL (7.4-10.4); Monocytes # 0.6 10^3/uL (0.2-0.9); Monocytes % 10.7 %; Neutrophils % 70.6 %; Nucleated Red Blood Cells % 0 %; Platelet Count 279 10^3/cmm (130-400); Red Blood Count 4.24 10^6/uL (4.1-5.3); Red Cell Distribution Width 13.2 % (12.1-15.1); White Blood Count 5.2 10^3/uL (4.0-10.0)
[2023-06-29 09:25] LABS: Alanine Aminotransferase 27 U/L (0-41); Albumin Level 3.9 g/dL (3.5-5.2); Alkaline Phosphatase 86 U/L (40-130); Anion Gap 13.3 (5-19); Aspartate Amino Transferase 23 U/L (0-40); Blood Urea Nitrogen 18 mg/dL (8-23); Calcium 9.3 mg/dL (8.5-10.5); Carbon Dioxide 26 mmol/L (22-29); Chloride 104 mmol/L (98-107); Globulin 2.6 g/dL (1.3-4.6); Glucose 111 mg/dL (65-115); Osmolality Calculated 291 mOsm/kg (285-295); Potassium 4.3 mmol/L (3.5-5.1); Sodium 139 mmol/L (136-145); Total Bilirubin 0.7 mg/dL (0.15-1.2); Total Protein 6.5 g/dL (6.6-8.7)
[2023-06-29] MEDS: sodium chloride 0.9% 250 ML 75 ML IV (10:49)
[2023-06-29] MEDS: palonosetron 0.25 mg/5 mL SDV IVP (10:52)
[2023-06-29] MEDS: acetaminophen 325 mg Tablet 650 MG PO (10:55)
[2023-06-29] MEDS: diphenhydrAMINE 25 mg Capsule PO (10:55)
[2023-06-29] MEDS: [UNRECOGNIZED DRUG - MIXTURE] 500 MG IV (11:27)
[2023-06-29 12:11] VITALS: BP 136/81; PULSE 75; RESP 16; TEMP 36.6; O2SAT 96
== END 2023-06-29 23:59 | disposition home or self-care (01) ==
PROVIDERS: Nurse Practitioner Family; PCP Family Medicine Adult Medicine; Visit Provider Internal Medicine Hematology & Oncology
DX: C77.8 Secondary and unspecified malignant neoplasm of lymph nodes of multiple regions; C67.8 Malignant neoplasm of overlapping sites of bladder; Z45.2 Encounter for adjustment and management of vascular access device; Z53.9 Procedure and treatment not carried out, unspecified reason; C67.9 Malignant neoplasm of bladder, unspecified; Z51.12 Encounter for antineoplastic immunotherapy; K59.04 Chronic idiopathic constipation; D72.819 Decreased white blood cell count, unspecified; R53.0 Neoplastic (malignant) related fatigue; R63.4 Abnormal weight loss; Z68.26 Body mass index [BMI] 26.0-26.9, adult; Z79.899 Other long term (current) drug therapy
CPT/HCPCS: 80053; 85025; 96367; 96375; 96413; 99214; J1100; J2469; J7050; J9177

== ENCOUNTER 2023-07-13 09:45 | Oncology outpatient (recurring) (ONCR) | payer MEDICARE, OTHER, SELFPAY ==
--- OUTSIDE RECORDS SUMMARY | 2023-06-30 10:17 | XMS_ITS | Patient Health Record ---
Author Name Unknown Organization [facility] Address [address] [place] [address] Care Team Providers Care Shipping Helper Name Role Phone Napoleon ALAS, Vishnu Primary Care Provider Bethanieab Andres Cervantes Unavailable [phone] Richmond Rivera Unavailable [phone] ALLERGIES No Known Allergies RESULTS Component Value Reference Range Notes UA Without Micro-Auto [id number] (Not yet reviewed by provider) Interpretation: Performing Lab: Notes/Report: Color Yellow Clarity clear Glucose - Bili - Ketones - Sp [place] 1.015 Blood Trace pH 6.0 Protein - Urobili - Nitrites - Leukocytes - PSA Diagnostic--[id number] Reviewed date:06/03/2023 10:21:25 AM Interpretation: Performing Lab: Notes/Report: Diagnosis Description: Encounter for screening for malignant neoplasm of prostate PSA .29 .00-4.00 NG/ML PSA concentra tions, regardless of the value, should not be interpreted as definitive evidence for the presence or absence of prostate cancer. REASON FOR REFERRAL Reason Malignant neoplasm o f urinary organ/Dysuria/Weak Flow Diagnosis 1 Malignant neoplasm o f urinary organ, unspecified (C68.9) Referring Provider First Name Vishnu Referring Provider Last Name Napoleon Referring Provider Speciality Family Med icine Referred Organization [facility] Referred Provider Richmond Rivera Referred Address [address],[place], [place],[address], Referred Provider Specialty Urology Referral Priority Routine MEDICATIONS Medication SIG (Take, Route, Frequency, Duration) Notes Start Date End Date Status Tamsulosin HCl 0.4 MG 1 capsule Orally O nce a day Active oxyCODONE-Acetaminophen 10-325 MG 1 tablet as needed Orally every 6 hrs Active Finasteride 5 MG 1 tablet Orally Once a day Active Preparation H Active Prevagen Active tiZANidine HCl 4 MG 1 tablet as needed Orally Three times a day Active Spiriva Respimat 2.5 MCG/ACT 2 puffs Inhalation Once a day Active Sulfamethoxazole-Trimetho prim Not-Taking Bisacodyl Laxative A ctive Diclofenac Sodium 1 % as directed Externally Active SOCIAL HISTORY Tobacco Use: Social History Observation Description Date Details (start date - stop date) Current Smoker NA - NA Sex Assigned At : Social History Observation Description Sex Assigned At Unknown Tobacco Use/Smoking Question Answer Notes Are you a current smoker How often do you smoke cigarettes? every day Additional Findings: Tobacco User e-Cigarette PROBLEMS Problem Type ICD Code Onset Dates Problem Status W/U Status Risk SNOMED Code Notes Problem Malignant neoplasm of urinary organ, unspecified (C68.9) Active confirmed 975653722 Problem Other obstructive and reflux uropathy (N13.8) Active confirmed 18207527 Problem Nocturia (R35.1) Active confirmed Noctu rolando (154982154) Problem Benign prostatic hyperplasia with lower urinary tract symptoms (N40.1) Active confirmed 740286974 Problem Pre-op testing (Z01.818) Active confirmed Pre-procedure evaluation check (770116885) Problem Hx of bladder cancer (Z85.51) Active confirmed 819334563 Problem Abnormal finding on CT scan (R93.89) Active confirmed 349840908 VITAL SIGNS Heart Rate 95 /min 06/13/2023 Temperature 97.3 degrees Fahrenheit 06/13/2023 Height-cm 172.72 cm 06/13/2023 Blood pressure diastolic 77 mm Hg 06/13/2023 Weight-kg 77.56 kg 06/13/2023 Height 68 in 06/13/2023 Blood pressure systolic 114 mm Hg 06/13/2023 Weight 171 lbs 06/13/2023 BMI 26 kg/m2 06/13/2023 Encounters Encounter Location Date Provider Diagnosis [facility] [address] [place] [address], [place] [address] 04/14/2023 Richmond Rivera Prostate cancer screening Z12.5 [facility] [address] [place] [address], [place] [address] 06/14/2023 Richmond Rivrea Benign prostatic hyperplasia with lower urinary tract symptoms N40.1 and Pre-op testing Z01.818 [facility] [address] [place] [address] 06/20/2023 [facility] [address] [place] [address] 06/20/2023 [facility] [address] [place] [address] 05/16/2023 Andres Beverly Hx of bladder cancer Z85.51 ; Abnormal finding on CT scan R93.89 ; Benign prostatic hyperplasia with lower urinary tract symptoms N40.1 ; Nocturia R35.1 ; Other obstructive and reflux uropathy N13.8 ; Encounter to establish care Z76.89 ; History of BPH Z87.438 and Urinary catheter insertion/adjustment/ removal Z46.6 [facility] [address] [place] [address] 06/13/2023 Andres aPul Benign prostatic hyperplasia with lower urinary tract symptoms N40.1 ; Nocturia R35.1 ; Abnormal finding on CT scan R93.89 ; Hx of bladder cancer Z85.51 and Catheter (urine) change required Z46.6 [facility] [address] [place] [address] 05/25/2023 Richmond Rivera Benign prostatic hyperplasia with lower urinary tract symptoms N40.1 ; Nocturia R35.1 ; Hx of bladder cancer Z85.51 and Abnormal finding on CT scan R93.89 ASSESSMENTS Encounter Date Diagnosis Assessment Notes Treatment Notes Treatment Clinical Notes 04/14/2023 Prostate cancer screening (ICD-10 - Z12.5) 05/16/2023 Hx of bladder cancer (ICD-10 - Z85.51) 05/16/[address] scan (ICD-10 - R93.89) 05/25/2023 Nocturia (ICD-10 - R35.1) 05/25/2023 Benign prostatic hyperplasia with lower urinary tract symptoms (ICD-10 - N40.1) 06/13/2023 Nocturia (ICD-10 - R35.1) 06/13/2023 Benign prostatic hyperplasia with lower urinary tract symptoms (ICD-10 - N40.1) 06/14/2023 Benign prostatic hyperplasia with lower urinary tract symptoms (ICD-10 - N40.1) 06/14/2023 Pre-op testing (ICD-10 - Z01.818) 06/13/[address] scan (ICD-10 - R93.89) 05/25/2023 Hx of bladder cancer (ICD-10 - Z85.51) 05/16/2023 Benign prostatic hyperplasia with lower urinary tract symptoms (ICD-10 - N40.1) 05/16/2023 Nocturia (ICD-10 - R35.1) 05/25/[address] scan (ICD-10 - R93.89) 06/13/2023 Hx of bladder cancer (ICD-10 - Z85.51) 06/13/2023 Catheter (urine) change required (ICD-10 - Z46.6) 05/16/2023 Other obstructive and reflux uropathy (ICD-10 - N13.8) 05/16/2023 Encounter to establish care (ICD-10 - Z76.89) 05/16/2023 History of BPH (ICD-10 - Z87.438) 05/16/2023 Urinary catheter insertion/adjustment /removal (ICD-10 - Z46.6) PLAN OF TREATMENT Pending Test Test Name Order Date UA Without Micro-Auto [id number] 05/25/2023 UA Without Micro-Auto [id number] 05/16/2023 UA Without Micro-Auto [id number] 06/13/2023 Culture Urine [id number] 06/14/2023 Basic Metabolic Panel [id number] 06/14/2023 CBC w\ Auto Diff [id number] 06/14/2023 PSA Diagnostic--38044 04/14/2023 Electrocardiogram 12 Lead Tracing-[id number] 06/14/2023 Insurance Providers Payer Name Payer Address Payer Phone Subscriber Number Group Number Insured Name Patient Relationship to Insured Coverage Start Date Coverage End Date [place] [address] [phone] [id number] Kol[place] Dial Self - patient is the insured for Life Secondary to Medicare [address] [place] [address] [phone] [id number] [employer] Dial Self - patient is the insured MEDICAL (GENERAL) HISTORY Medical History History ICD Code Chicken Pox Arthritis Migraine SINGH Cancer bladder Back Trouble Hemorrhoids Asthma BPH with LUTS CAD Surgical History Surgery Date(Month/Year) Heart Surgery 2019 Lymph node 02/2023 Hospitalization History Reason Date(Month/Year) surgery
--- OUTSIDE RECORDS SUMMARY | 2023-06-30 10:17 | XMS_ITS | Patient Health Record ---
Author Name Unknown Organization [facility] Address [address] [place], [place] [id number] Care Team Providers Care Banana Ripening Room Supervisor Name Role Phone Vishnu Bender MD Primary Care Provider Unavailab ashish Maradiaga MD, Philip Unavailable [phone] Consuelo Laws Unavailable [phone] ALLERGIES No Known Allergies RESULTS Component Value Reference Range Notes Giv.to Results Reviewed date:05/23/2023 08:29:18 AM Interpretation: Performing Lab:[id number] [employer], [address] [place] [address] Kasandra Crews MD Notes/Report: [employer], [address] [address] [facility], [facility], [place] [address], , L ab Director: Kasandra Crews MD, CLIA ID# [id number] Codeine negative 1 ng/mL Morphine negative 1 ng/mL Hydrocodone negative 1 ng/mL Norhydrocodone Quantification negative 2 ng/mL Hydromorphone negative 1 ng/mL Oxycodone positive-424.895 1 ng/mL Noroxycodone Quantification positive-37.701 2 ng/mL Oxymorphone positive-1.349 1 ng/mL Buprenorphine Quantification negative 1 ng/mL Norbuprenorphine Quantification negative 2 ng/mL Fentanyl Quantification SEE COMMENTS 0.2 ng/mL Norfentanyl Quantification negative 1 ng/mL Meperidine Quantification negative 1 ng/mL Normeperidine Quantification negative 2 ng/mL Methadone negative 2 ng/mL EDDP (Methadone metabolite) negative 2 ng/mL Tapentadol Quantification negative 5 ng/mL Tramadol Quantification negative 5 ng/mL E-Ozegcvjlh-Gjiajtbx Quantification negative 5 ng/ mL Alprazolam negative 1 ng/mL Clonazepam negative 1 ng/mL Clonazepam Metabolite Quantification negative 1 ng /mL Diazepam negative 1 ng/mL Nordiazepam negative 1 ng/mL Lorazepam negative 1 ng/mL Oxazepam negative 2 ng/mL Temazepam negative 1 ng/mL Amphetamine negative 5 ng/mL Methylphenidate Quantification negative 1 Ritalinic Acid Quantification negative 1 Carisoprodol Quantification negative 5 ng/mL Meprobamate Quantification negative 5 ng/mL Dextromethorphan Quantification negative 1 ng/mL Levorphanol / Dextrorphan Quantification negative 1 ng/mL Gabapentin Quantification negative 10 ng/mL Naltrexone Quantification negative 1 ng/mL Naltrexol (Naltrexone metabo lite) Quantification negative 1 ng/mL Pregabalin Quantification negative 5 ng/mL Sertraline Quantification negative 1 ng/mL Zolpidem Quantification negative 1 Methamphetamine negative 5 ng/mL Cocaine Quantification negative 2 ng/mL Cocaine Metabolite negative 2 ng/mL THC (Marijuana Component) negative 2 ng/mL MDMA negative 5 ng/mL 6-JOSEPHINE (Heroin metabolite) Quantification negative 1 ng/mL Phencyclidine negative 1 ng/mL Embedded PDF Reviewed date:05/23/2023 08:29:27 AM Interpretation: Performing Lab: Notes/Report: Fentanyl: Test not performed, quantity not sufficient for confirmation. FOR[facility]LY [facility], [address] [address], , L ab Director: Kasandra Crews MD, CLIA ID# [id number] [facility] Swab Toxicology Scree n Reviewed date:05/23/2023 08:29:40 AM Interpretation:Consistent Performing Lab: Notes/Report: Consistent Urine tox screen / MS if ind icated Reviewed date:11/09/2022 01:37:00 PM Interpretation: Performing Lab: Notes/Report: REASON FOR REFERRAL No Information SOCIAL HISTORY Tobacco Use: Social History Observation Description Date Details (start date - stop date) Former Smoker NA - NA Sex Assigned At : Social History Observation Description Sex Assigned At Unknown alcohol Question Answer Notes Did you have a drink containing alcohol in the p ast year? No Points 0 Interpretation Negative Tobacco use: Question Answer Notes : former smoker When did you stop smoking? 2011 PROBLEMS Problem Type ICD Code Onset Dates Problem Status W/U Status Risk SNOMED Code Notes Problem Sacroiliitis, not elsewhere classified (M46.1) Active confirmed Solitary sacroiliitis (079823823) Problem Low back pain (M54.5) Active confirmed Low back pain (419842617) Problem emt intermediate (current) use of opiate analgesic (Z79.891) Active confirmed High risk drug monitoring status (248170001) Problem Other sleep disorders (G47.8) Active confirmed Sleep diso rder (41792586) Problem Other chronic pain (G89.29) Active confirmed Chronic pain (95455567) Problem Polyosteoarthritis , unspecified (M15.9) Active confirmed Osteoarthritis (248989862) Problem Pain in thoracic spine (M54.6) Active confirmed Pain in thorac ic spine (914810065) Problem Palmar fascial fibromatosis [Dupuytren] (M72.0) Active confirmed Contracture of palmar fascia (813292799) Problem Postlaminectomy syndrome, not elsewhere classified (M96.1) Active confirmed Post-lami nectomy syndrome (59334317) Problem Other mcc (current) drug therapy (Z79.899) Active confirmed Long-term current use of drug therapy (545849546) Problem Vertebrogenic low back pain (M54.51) Active confirmed Pain in l umbar spine (458626757) Encounters Encounter Location Date Provider Diagnosis [facility] [place] [address] [employer] [place], [place] [id number] 08/17/2022 Philip Maradiaga Procedure and treatm ent not carried out because of patient's decision for unspecified reasons Z53.20 [facility] [place] [address] [employer] [place], [place] [id number] 08/24/2022 Philip Maradiaga Postlaminectomy syndrome, not elsewhere classified M96.1 ; Vertebrogenic low back pain M54.51 ; Sacroiliitis, not elsewhere classified M46.1 ; Other sleep disorders G47.8 and emt intermediate (current) use of opiate analgesic Z79.891 [facility] [address] [id number] 11/09/2022 Philip Maradiaga Postlaminectomy syndrome, not elsewhere classified M96.1 ; Vertebrogenic low back pain M54.51 ; Sacroiliitis, not elsewhere classified M46.1 ; Other sleep disorders G47.8 and nursing home (current) use of opiate analgesic Z79.891 [facility] [address] [employer] [place], [place] [id number] 11/15/2022 Philip Maradiaga [facility], [facility] [address] [employer] [place], [place] [id number] 02/15/2023 Philip Maradiaga Postlaminectomy syndrome, not elsewhere classified M96.1 ; Vertebrogenic low back pain M54.51 ; Sacroiliitis, not elsewhere classified M46.1 ; Other sleep disorders G47.8 and emt intermediate (current) use of opiate analgesic Z79.891 [facility], [facility] [address] [employer] [place], [place] [id number] 02/22/2023 Philip Maradiaga Postlaminectomy syndrome, not elsewhere classified M96.1 ; Vertebrogenic low back pain M54.51 ; Sacroiliitis, not elsewhere classified M46.1 ; Pain in thoracic spine M54.6 ; Other sleep disorders G47.8 and nursing home (current) use of opiate analgesic Z79.891 [facility], [facility] [address] [employer] [place], [place] [id number] 05/17/2023 Consuelo Min Vertebrogenic low ba ck pain M54.51 ; Other chronic pain G89.29 and nursing home (current) use of opiate analgesic Z79.891 ASSESSMENTS Encounter Date Diagnosis Assessment Notes Treatment Notes Treatment Clinical Notes 08/17/2022 Procedure and treatment not carried out because of patient's decision for unspecified reasons (ICD-10 - Z53.20) 08/24/2022 Postlaminectomy syndrome, not elsewhere classified (ICD-10 - M96.1) Have recommended patient consider a DCS trial. Patient responded that he has considered this treatment option in the past via a previous pain doctor and he had decided against having a DCS trial: he stated that he is not likely to reconsider his decision 11/09/2022 Postlaminectomy syndrome, not elsewhere classified (ICD-10 - M96.1) Have recommended patient consider a DCS trial. Patient responded that he has considered this treatment option in the past via a previous pain doctor and he had decided against having a DCS trial: he stated that he is not likely to reconsider his decision 02/15/2023 Postlaminectomy syndrome, not elsewhere classified (ICD-10 - M96.1) Have recommended patient consider a DCS trial. Patient responded that he has considered this treatment option in the past via a previous pain doctor and he had decided against having a DCS trial: he stated that he is not likely to reconsider his decision 02/22/2023 Postlaminectomy syndrome, not elsewhere classified (ICD-10 - M96.1) Have recommended patient consider a DCS trial. Patient responded that he has considered this treatment option in the past via a previous pain doctor (patient decided against having a DCS trial at that time): DCS information given patient on 02/22/23 05/17/2023 Other chronic pain (ICD-10 - G89.29) Patient reports that taking his pain medication allows him the ability to keep multiple doctors appointments and tolerate multiple procedures. Plan to continue oral opioid medication management 05/17/2023 Vertebrogenic low back pain (ICD-10 - M54.51) Chronic axial lumbosacral spine pain 02/22/2023 Vertebrogenic low back pain (ICD-10 - M54.51) Chronic axial lumbosacral (and thoracic) spine pain. Minimal prior conservative treatment by patient noted. Prior surgical treatment as noted, below. History of minimally invasive interventional spine treatment via other provider(s) as per prior patient report. Will consider fluoroscope - guided minimally invasive interventional spine treatment when such treatment is desired by patient. The treatment has been offered to the patient and the patient declined. Patient has verbalized understanding to notify this facility if the treatment is desired. Oral opioid medication use with history of benefit. Plan to continue medication management 05/17/2023 nursing home (current) use of opiate analgesic (ICD-10 - Z79.891) Oral fluid toxicology screen today to monitor compliance regarding use of prescribed oxycodone and for the presence of any unprescribed or illicit drugs 02/15/2023 Vertebrogenic low back pain (ICD-10 - M54.51) Chronic axial lumbosacral (and thoracic) spine pain. Minimal prior conservative treatment by patient noted. Prior surgical treatment as noted, below. History of minimally invasive interventional spine treatment via other provider(s) as per prior patient report. Will consider fluoroscope - guided minimally invasive interventional spine treatment when such treatment is desired by patient. The treatment has been offered to the patient and the patient declined. Patient has verbalized understanding to notify this facility if the treatment is desired. Oral opioid medication use with history of benefit. Plan to continue medication management 02/22/2023 Sacroiliitis, not elsewhere classified (ICD-10 - M46.1) 11/09/2022 Vertebrogenic low back pain (ICD-10 - M54.51) Chronic axial lumbar spine pain. History of prior minimally invasive interventional spine treatment. History of prior surgical treatment. Will consider interventional spine treatment when such treatment is desired by patient. The treatment has been offered to the patient and the patient declined. Patient has verbalized understanding to notify this facility if the treatment is desired. Oral opioid medication use with history of benefit. Plan to continue medication management 02/15/2023 Sacroiliitis, not elsewhere classified (ICD-10 - M46.1) 08/24/2022 Vertebrogenic low back pain (ICD-10 - M54.51) Will consider interventional spine treatment when such treatment is desired by patient. The treatment has been offered to the patient and the patient declined. Patient has verbalized understanding to notify this facility if the treatment is desired. Oral opioid medication use with history of benefit. Plan to continue medication management 11/09/2022 Sacroiliitis, not elsewhere classified (ICD-10 - M46.1) 08/24/2022 Sacroiliitis, not elsewhere classified (ICD-10 - M46.1) 08/24/2022 Other sleep disorder s (ICD-10 - G47.8) Patient has described his sleep as fair with complaints of frequent awakenings and impaired memory / intellectual function. Patient has not had a sleep study. Cohutta score = 6. Will consider a sleep study if it is desired by patient. Have recommended a sleep study. Prior offer of an order for such a study was declined / deferred by patient: patient has verbalized understanding to notify this facility if the study is desired. Plan to restrict opioid usage in relation to sleep: patient has verbalized understanding to hold short-acting opioids within four hours of planned sleep. Patient has been counseled on the risks of sleep apnea (if present), with or without opioid and / or other sedative usage, and the patient verbalized understanding and acceptance of the increased risk (sleep apnea, respiratory depression, ) with opioid and / or sedative substance usage. Patient has been counseled that synergistic risk occurs with concomitant opioid and sedative usage. Patient has been counseled to hold opioid and / or sedative substances prior to planned sleep or dangerous activities and patient verbalized understanding that noncompliance would be at patient's increased risk 11/09/2022 Other sleep disorder s (ICD-10 - G47.8) Patient has described his sleep as fair with complaints of frequent awakenings and impaired memory / intellectual function. Patient has not had a sleep study. Cohutta score = 6. Will consider a sleep study if it is desired by patient. Have recommended a sleep study. Prior offer of an order for such a study was declined / deferred by patient: patient has verbalized understanding to notify this facility if the study is desired. Plan to restrict opioid usage in relation to sleep: patient has verbalized understanding to hold short-acting opioids within four hours of planned sleep. Patient has been counseled on the risks of sleep apnea (if present), with or without opioid and / or other sedative usage, and the patient verbalized understanding and acceptance of the increased risk (sleep apnea, respiratory depression, ) with opioid and / or sedative substance usage. Patient has been counseled that synergistic risk occurs with concomitant opioid and sedative usage. Patient has been counseled to hold opioid and / or sedative substances prior to planned sleep or dangerous activities and patient verbalized understanding that noncompliance would be at patient's increased risk 02/15/2023 Other sleep disorder s (ICD-10 - G47.8) Patient has described his sleep as fair with complaints of frequent awakenings and impaired memory / intellectual function. Patient has not had a sleep study. Cohutta score = 6. Will consider a sleep study if it is desired by patient. Have recommended a sleep study. Prior offer of an order for such a study was declined / deferred by patient: patient has verbalized understanding to notify this facility if the study is desired. Plan to restrict opioid usage in relation to sleep: patient has verbalized understanding to hold short-acting opioids within four hours of planned sleep. Patient has been counseled on the risks of sleep apnea (if present), with or without opioid and / or other sedative usage, and the patient verbalized understanding and acceptance of the increased risk (sleep apnea, respiratory depression, ) with opioid and / or sedative substance usage. Patient has been counseled that synergistic risk occurs with concomitant opioid and sedative usage. Patient has been counseled to hold opioid and / or sedative substances prior to planned sleep or dangerous activities and patient verbalized understanding that noncompliance would be at patient's increased risk 02/22/2023 Pain in thoracic spine (ICD-10 - M54.6) Patient complained of worsened thoracic spine pain on 02/22/23. Do not anticipate offering patient any fluoroscope - guided minimally invasive interventional spine treatment for thoracic spine via this facility / provider (prior scope of practice change by this provider). Recommended / offered a work - up: thoracic spine imaging studies and referral to a minimally invasive interventional spine treatment provider as patient had intimated (prior relief via another provider in remote past). Patient declined / deferred stating he will let this facility know pending outcome of cancer work - up. Patient showed interest in a referral to a local provider (referral options discussed) 02/22/2023 Other sleep disorder s (ICD-10 - G47.8) Patient has described his sleep as fair with complaints of frequent awakenings and impaired memory / intellectual function. Patient has not had a sleep study. Cohutta score = 6. Will consider a sleep study if it is desired by patient. Have recommended a sleep study. Prior offer of an order for such a study was declined / deferred by patient: patient has verbalized understanding to notify this facility if the study is desired. Plan to restrict opioid usage in relation to sleep: patient has verbalized understanding to hold short-acting opioids within four hours of planned sleep. Patient has been counseled on the risks of sleep apnea (if present), with or without opioid and / or other sedative usage, and the patient verbalized understanding and acceptance of the increased risk (sleep apnea, respiratory depression, ) with opioid and / or sedative substance usage. Patient has been counseled that synergistic risk occurs with concomitant opioid and sedative usage. Patient has been counseled to hold opioid and / or sedative substances prior to planned sleep or dangerous activities and patient verbalized understanding that noncompliance would be at patient's increased risk 02/15/2023 nursing home (current) use of opiate analgesic (ICD-10 - Z79.891) Patient has a total daily MED of 60. This places the patient in the [facility] moderate risk category for total daily opioid usage (not to be confused with the separate potential significant risk in regards to possible sleep apnea, above). Have recommended patient taper daily doses to the lowest number of daily doses that provide effective analgesia. Patient has received the Opioid Analgesic REMS Patient Counseling Guide. Patient has had opportunity to read the Guide and ask questions pertaining to the Guide. Patient has been advised on 05/19/21 that due to the [facility] Government concerns and actions, any suspected patient misuse, abuse, or diversion of controlled substances (i.e. opioids/narcotics/p ain killers) WILL result in dissolution of treatment from this clinic. Patients adhering to the concepts contained within the patient's Treatment Agreement will be protected from such termination of care. Patient was given a copy of the Treatment Agreement, signed by patient on 04/26/21. Patient signed an opioid consent form on 05/19/21. Patient has refused offer of a Narcan nasal spray prescription. Opioid Risk Tool score 0 - low risk 08/24/2022 nursing home (current) use of opiate analgesic (ICD-10 - Z79.891) Patient has a total daily MED of 60. This places the patient in the [facility] moderate risk category for total daily opioid usage (not to be confused with the separate potential significant risk in regards to possible sleep apnea, above). Have recommended patient taper daily doses to the lowest number of daily doses that provide effective analgesia. Patient has received the Opioid Analgesic REMS Patient Counseling Guide. Patient has had opportunity to read the Guide and ask questions pertaining to the Guide. Patient has been advised on 05/19/21 that due to the [facility] Government concerns and actions, any suspected patient misuse, abuse, or diversion of controlled substances (i.e. opioids/narcotics/p ain killers) WILL result in dissolution of treatment from this clinic. Patients adhering to the concepts contained within the patient's Treatment Agreement will be protected from such termination of care. Patient was given a copy of the Treatment Agreement, signed by patient on 04/26/21. Patient signed an opioid consent form on 05/19/21. Patient has refused offer of a Narcan nasal spray prescription. Opioid Risk Tool score 0 - low risk 11/09/2022 emt intermediate (current) use of opiate analgesic (ICD-10 - Z79.891) Patient has a total daily MED of 60. This places the patient in the [facility] moderate risk category for total daily opioid usage (not to be confused with the separate potential significant risk in regards to possible sleep apnea, above). Have recommended patient taper daily doses to the lowest number of daily doses that provide effective analgesia. Patient has received the Opioid Analgesic REMS Patient Counseling Guide. Patient has had opportunity to read the Guide and ask questions pertaining to the Guide. Patient has been advised on 05/19/21 that due to the [facility] Government concerns and actions, any suspected patient misuse, abuse, or diversion of controlled substances (i.e. opioids/narcotics/p ain killers) WILL result in dissolution of treatment from this clinic. Patients adhering to the concepts contained within the patient's Treatment Agreement will be protected from such termination of care. Patient was given a copy of the Treatment Agreement, signed by patient on 04/26/21. Patient signed an opioid consent form on 05/19/21. Patient has refused offer of a Narcan nasal spray prescription. Opioid Risk Tool score 0 - low risk. Urine Tox screen today; random screens per protocol 02/22/2023 emt intermediate (current) use of opiate analgesic (ICD-10 - Z79.891) Patient has a total daily MED of 60. This places the patient in the [facility] moderate risk category for total daily opioid usage (not to be confused with the separate potential significant risk in regards to possible sleep apnea, above). Have recommended patient taper daily doses to the lowest number of daily doses that provide effective analgesia. Patient has received the Opioid Analgesic REMS Patient Counseling Guide. Patient has had opportunity to read the Guide and ask questions pertaining to the Guide. Patient has been advised on 05/19/21 that due to the [facility] Government concerns and actions, any suspected patient misuse, abuse, or diversion of controlled substances (i.e. opioids/narcotics/p ain killers) WILL result in dissolution of treatment from this clinic. Patients adhering to the concepts contained within the patient's Treatment Agreement will be protected from such termination of care. Patient was given a copy of the Treatment Agreement, signed by patient on 04/26/21. Patient signed an opioid consent form on 05/19/21. Patient has refused offer of a Narcan nasal spray prescription. Opioid Risk Tool score 0 - low risk 02/22/2023 Other Patient has an appointment this afternoon with Dr. Bender for a biopsy on a nodule in his throat/neck area to see if cancerous or not 08/24/2022 Other November eRx was eCancelled and printed for patient to hand carry due to travel during the . Patient verbalized understanding that future No-Shows will result in termination of care at this facility 11/09/2022 Other 02/15/2023 Other Above prescript ions printed due to eRx transmission issues 05/17/2023 Other Patient reports he has completed one chemotherapy treatment with Dr. Sampson at [facility] and is scheduled for another later today PLAN OF TREATMENT Next Appt Details Provider Name:Philip Medina son, 08/16/2023 07:10:00 AM, [address] [employer] [facility], [place], [place], [id number], Insurance Providers Payer Name Payer Address Payer Phone Subscriber Number Group Number Insured Name Patient Relationship to Insured Coverage Start Date Coverage End Date [employer] Medicare Part B Claims Department [address] [address] [place] [address] [id number] [employer] Self - patient is the insured [employer] [address] [place] [address] [id number] YojanaKolton gottlieb Self - patient is the insured MEDICAL (GENERAL) HISTORY Medical History History ICD Code Chronic pain Low back pain Lumbar spondylosis and post-laminectomy syndrome Sacroiliitis 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 Chronic mid back pain Chronic neck pain Polyosteoarthritis Osteoarthritis involving multiple joints on both sides of body Migraines Palmar fascial fibromatosis Dupuytren's contracture of right hand Chemotherapy for bladder cancer (2019) COPD and emphysema BPD Coronary atherosclerotic disease Nephrolithiasis Hepatitis GERD Bladder cancer (2022) Surgical History Surgery Date(Month/Year) Ear surgery Duputryen contracture release, bilateral , 1997 Angioplasty with placement of two stents Foot surgery, left (bone spur) Right rotator cuff repair Arthroscopic medial menisect eric, left performed at [facility] [place], [place], [place] by Dae Capellan, 2013 Lumbar disc (spacers) surgery, 2013 Lumbar fusion L2-5, performe d at [facility] in [place], [place], 2014 CABG x 2 vessels, 08/2018 Cystourethroscopy, performed at [facility] in [place], [place] by Dr. Pierre, 02/2019 Transurethral resection of b ladder tumor, performed at [facility] in [place], [place], 04/2019 Biopsy of lymphnodes (bladder cancer), p erformed by Dr. Bender, 02/2023 Port placement, performed in [place], [place], 04/2023
[2023-07-13 10:02] VITALS: BP 124/80; PULSE 95; RESP 18; TEMP 36; O2SAT 96; BMI 26.1
[2023-07-13 10:12] LABS: Basophils % 0.7 %; Eosinophils # 0.1 10^3/uL (0.0-0.8); Eosinophils % 2.1 %; Hemoglobin 11.4 g/dL (11.7-16.6); Lymphocytes # 0.7 10^3/uL (0.8-4.8); Lymphocytes % 16.9 %; Mean Corpuscular HGB Conc 32.6 g/dL (30.0-36.0); Mean Corpuscular Volume 92.1 fl (80-94); Mean Platelet Volume 10.1 fL (7.4-10.4); Monocytes # 0.7 10^3/uL (0.2-0.9); Monocytes % 16.2 %; Neutrophils # 2.65 10^3/uL (1.8-7.7); Neutrophils % 63.1 %; Nucleated Red Blood Cells % 0 %; Platelet Count 207 10^3/cmm (130-400); Red Cell Distribution Width 13.5 % (12.1-15.1); White Blood Count 4.2 10^3/uL (4.0-10.0)
[2023-07-13 10:49] LABS: Alanine Aminotransferase 13 U/L (0-41); Albumin Level 3.5 g/dL (3.5-5.2); Alkaline Phosphatase 74 U/L (40-130); Anion Gap 14.4 (5-19); Aspartate Amino Transferase 16 U/L (0-40); Blood Urea Nitrogen 23 mg/dL (8-23); Calcium 9.3 mg/dL (8.5-10.5); Carbon Dioxide 28 mmol/L (22-29); Chloride 99 mmol/L (98-107); Globulin 3.1 g/dL (1.3-4.6); Glucose 108 mg/dL (65-115); Osmolality Calculated 288 mOsm/kg (285-295); Potassium 4.4 mmol/L (3.5-5.1); Sodium 137 mmol/L (136-145); Thyroid Stimulating Hormone 1.75 uIU/mL (0.27-4.20); Total Bilirubin 0.4 mg/dL (0.15-1.2); Total Protein 6.6 g/dL (6.6-8.7)
[2023-07-13] MEDS: acetaminophen 325 mg Tablet 650 MG PO (12:07)
[2023-07-13] MEDS: sodium chloride 0.9% 250 ML 75 ML IV (12:07)
[2023-07-13] MEDS: diphenhydrAMINE 25 mg Capsule PO (12:07)
[2023-07-13] MEDS: ondansetron 2 mg/ML SDV 2 mL 8 MG IVP (12:08)
[2023-07-13] MEDS: famotidine 20 mg/2 mL INJ IVP (12:09)
[2023-07-13] MEDS: pembrolizumab 200 MG in sodium chloride 0.9% 250 ML 516 MG IV (12:40)
[2023-07-13] MEDS: [UNRECOGNIZED DRUG - MIXTURE] 500 MG IV (13:23)
[2023-07-13 14:25] VITALS: BP 106/67; PULSE 90; RESP 16; TEMP 36.8; O2SAT 98
== END 2023-07-13 23:59 | disposition home or self-care (01) ==
PROVIDERS: Nurse Practitioner Family; PCP Family Medicine Adult Medicine; Visit Provider Internal Medicine Hematology & Oncology
DX: C67.8 Malignant neoplasm of overlapping sites of bladder (principal); C77.8 Secondary and unspecified malignant neoplasm of lymph nodes of multiple regions; Z51.12 Encounter for antineoplastic immunotherapy; K59.04 Chronic idiopathic constipation; D72.819 Decreased white blood cell count, unspecified; R53.0 Neoplastic (malignant) related fatigue; Z79.899 Other long term (current) drug therapy
CPT/HCPCS: 80053; 84443; 85025; 96367; 96375; 96413; 96417; 99214; J1100; J1642; J2405; J3490; J7050; J9177; J9271

== ENCOUNTER 2023-07-20 14:00 | Oncology outpatient (recurring) (ONCR) | payer MEDICARE, OTHER, SELFPAY ==
--- OUTSIDE RECORDS SUMMARY | 2023-07-14 09:12 | XMS_ITS | Patient Health Record ---
Author Name Unknown Organization [facility] [employer] Address [address] [place], [place] [id number] Care Team Providers Care Furrier Designer Name Role Phone Vishnu Bender MD Primary Care Provider Unavailab ashish Maradiaga MD, Philip Unavailable [phone] Consuelo Laws Unavailable [phone] ALLERGIES No Known Allergies RESULTS Component Value Reference Range Notes 5o9 Results Reviewed date:05/23/2023 08:29:18 AM Interpretation: Performing Lab:[id number] [facility], [address] [address] Kasandra Crews MD Notes/Report: [facility], [address] [facility], [place] [address], , L ab Director: Kasandra Crews MD, CLIA ID# [id number] Codeine negative 1 ng/mL Morphine negative 1 [...] 5 ng/mL Tramadol Quantification negative 5 ng/mL V-Tkvcnsxmx-Ywadhdho Quantification negative 5 ng/ mL Alprazolam negative [...] not performed, quantity not sufficient for confirmation. [facility], [address] [address], , L ab Director: Kasandra Crews MD, CLIA ID# [id number] Saliva Swab Toxicology Scree n Reviewed date:05/23/2023 [...] elsewhere classified (M46.1) Active confirmed Solitary sacroiliitis (309095584) Problem Low back pain (M54.5) Active confirmed Low back pain (594657530) Problem long-term (current) use of opiate analgesic (Z79.891) Active confirmed High risk drug monitoring status (740972801) Problem Other sleep disorders (G47.8) Active confirmed Sleep diso rder (51515202) Problem Other chronic pain (G89.29) Active confirmed Chronic pain (66187917) Problem Polyosteoarthritis , unspecified (M15.9) Active confirmed Osteoarthritis (925634527) Problem Pain in thoracic spine (M54.6) Active confirmed Pain in thorac ic spine (856896361) Problem Palmar fascial fibromatosis [Dupuytren] (M72.0) Active confirmed Contracture of palmar fascia (999955294) Problem Postlaminectomy syndrome, not elsewhere classified (M96.1) Active confirmed Post-lami nectomy syndrome (87838793) Problem 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 (Z79.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) Active confirmed Long-term current use of drug therapy (930809251) Problem Vertebrogenic low back pain (M54.51) Active confirmed Pain in l umbar spine (966738809) Encounters Encounter Location Date Provider Diagnosis [facility] [place] [address] [place], [place] [id number] 08/17/2022 Philip Maradiaga Procedure and treatm ent not carried out because of patient's decision for unspecified reasons Z53.20 [facility] [place] [address] [place], [place] [id number] 08/24/2022 Philip Maradiaga Postlaminectomy syndrome, not elsewhere classified M96.1 ; Vertebrogenic low back pain M54.51 ; Sacroiliitis, not elsewhere classified M46.1 ; Other sleep disorders G47.8 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 Z79.891 [facility] [address] [id number] 11/09/2022 Philip Maradiaga Postlaminectomy syndrome, not elsewhere classified M96.1 ; Vertebrogenic low back pain M54.51 ; Sacroiliitis, not elsewhere classified M46.1 ; Other sleep disorders G47.8 and long-term (current) use of opiate analgesic Z79.891 [facility] [address] [place], [place] [id number] 11/15/2022 Philip Maradiaga [facility] [address] [place], [place] [id number] 02/15/2023 Philip Maradiaga Postlaminectomy syndrome, not elsewhere classified M96.1 ; Vertebrogenic low back pain M54.51 ; Sacroiliitis, not elsewhere classified M46.1 ; Other sleep disorders G47.8 and long-term (current) use of opiate analgesic Z79.891 [facility] [address] [place], [place] [id number] 02/22/2023 Philip Maradiaga Postlaminectomy syndrome, not elsewhere classified M96.1 ; Vertebrogenic low back pain M54.51 ; Sacroiliitis, not elsewhere classified M46.1 ; Pain in thoracic spine M54.6 ; Other sleep disorders G47.8 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 [place] score = 6. Will consider a sleep [...] Patient has not had a sleep study. [place] score = 6. Will consider a sleep [...] Patient has not had a sleep study. [place] score = 6. Will consider a sleep [...] Patient has not had a sleep study. [place] score = 6. 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 (ICD-10 - [...] advised on 05/19/21 that due to the [facility] [employer] concerns and actions, any suspected [...] Tool score 0 - low risk 11/09/2022 long-term (current) use of opiate analgesic (ICD-10 - [...] advised on 05/19/21 that due to the [facility] [employer] concerns and actions, any suspected [...] screen today; random screens per protocol 02/22/2023 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 Sampson at [facility] and is scheduled for another later today PLAN OF TREATMENT Next Appt Details Provider Name:Philip Medina son, 08/16/2023 07:10:00 AM, [address] [facility], [place], [place], [id number], Insurance Providers Payer Name Payer Address Payer Phone Subscriber Number Group Number Insured Name Patient Relationship to Insured Coverage Start Date Coverage End Date [employer] Medicare Part B Claims Department [address] [address] [place] [address] [id number] Kolton Dial Self - patient is the insured [employer] [address] [place] [address] [id number] YojanaKolton gottlieb Self - patient is the [...] Arthroscopic medial menisect eric, left performed at [facility] [place], [place], [place] by Dae Capellan, 2013 Lumbar disc (spacers) surgery, 2013 Lumbar fusion L2-5, performe d at [facility] in [place], [place], 2014 CABG x 2 vessels, 08/2018 Cystourethroscopy, performed at [facility] in [place], [place] by Dr. Pierre, 02/2019 Transurethral resection of b ladder tumor, performed at [facility] in [place], [place], 04/2019 Biopsy of lymphnodes (bladder cancer), p erformed by Dr. Bender, 02/2023 Port placement, performed in [place], [place], 04/2023
--- OUTSIDE RECORDS SUMMARY | 2023-07-14 09:12 | XMS_ITS | Patient Health Record ---
Author Name Unknown Organization [facility] Address [address] [place] [address] Care Team Providers Care Spa Consultant Name Role Phone Napoleon ALAS, Vishnu Primary Care Provider Unavailab Andres Cervantes Unavailable [phone] Richmond Rivera Unavailable [phone] ALLERGIES No Known Allergies RESULTS Component Value Reference Range Notes PSA Diagnostic--[id number] Reviewed date:06/03/2023 10:21:25 AM Interpretation: Performing Lab: Notes/Report: Diagnosis Description: Encounter for screening for malignant neoplasm of prostate PSA .29 .00-4.00 NG/ML PSA concentra tions, regardless of the value, should not be interpreted as definitive evidence for the presence or absence of prostate cancer. UA Without Micro-Auto 36095 (Not yet reviewed by provider) Interpretation: Performing Lab: Notes/Report: Color Yellow Clarity clear Glucose - Bili - Ketones - Sp [place] 1.015 Blood Trace pH 6.0 Protein - Urobili - Nitrites - Leukocytes - REASON FOR REFERRAL Reason Malignant neoplasm o f urinary organ/Dysuria/Weak Flow Diagnosis 1 Malignant neoplasm o f urinary organ, unspecified (C68.9) Referring Provider First Name Vishnu Referring Provider Last Name Napoleon Referring Provider Speciality Family Med icine Referred Organization [facility] Referred Provider Richmond Rivera Referred Address [address] [facility],[address], Referred Provider Specialty Urology Referral Priority Routine [...] of urinary organ, unspecified (C68.9) Active confirmed 342574515 Problem Other obstructive and reflux uropathy (N13.8) Active confirmed 64440717 Problem Nocturia (R35.1) Active confirmed Noctu rolando (327015872) Problem Benign prostatic hyperplasia with lower urinary tract symptoms (N40.1) Active confirmed 203367228 Problem Pre-op testing (Z01.818) Active confirmed Pre-procedure evaluation check (595750341) Problem Hx of bladder cancer (Z85.51) Active confirmed 242548676 Problem Abnormal finding on CT scan (R93.89) Active confirmed 587409364 VITAL SIGNS Heart Rate 95 /min 06/13/2023 Temperature 97.3 degrees Fahrenheit 06/13/2023 Height-cm 172.72 cm 06/13/2023 Blood pressure diastolic 77 mm Hg 06/13/2023 Weight-kg 77.56 kg 06/13/2023 Height 68 in 06/13/2023 Blood pressure systolic 114 mm Hg 06/13/2023 Weight 171 lbs 06/13/2023 BMI 26 kg/m2 06/13/2023 Encounters Encounter Location Date Provider Diagnosis [facility] [address] [place] [address], [place] [address] 04/14/2023 Richmond Rivera Prostate cancer screening Z12.5 [facility] [address] [place] [address], [place] [address] 06/14/2023 Richmond Rivera Benign prostatic hyperplasia with lower urinary tract symptoms N40.1 and Pre-op testing Z01.818 [facility] [address] [place] [address] 06/20/2023 [facility] [address] [place] [address] 06[facility] [address] [place] [address] 05/16/2023 Andres Beverly Hx of bladder cancer Z85.51 ; Abnormal finding on CT scan R93.89 ; Benign prostatic hyperplasia with lower urinary tract symptoms N40.1 ; Nocturia R35.1 ; Other obstructive and reflux uropathy N13.8 ; Encounter to establish care Z76.89 ; History of BPH Z87.438 and Urinary catheter insertion/adjustment/ removal Z46.6 [facility] [address] [place] [address] 06/13/2023 Andres Paul Benign prostatic hyperplasia with lower urinary tract symptoms N40.1 ; Nocturia R35.1 ; Abnormal finding on CT scan R93.89 ; Hx of bladder cancer Z85.51 and Catheter (urine) change required Z46.6 [facility] [address] [place] [address] 05/25/2023 Richmond Rivera Benign prostatic hyperplasia with lower urinary tract symptoms N40.1 ; Nocturia R35.1 ; Hx of bladder cancer Z85.51 and Abnormal finding on CT scan R93.89 ASSESSMENTS Encounter Date Diagnosis Assessment Notes Treatment Notes Treatment Clinical Notes 04/14/2023 Prostate cancer screening (ICD-10 - Z12.5) 05/25/2023 Nocturia (ICD-10 - R35.1) 05/25/2023 Benign prostatic hyperplasia with lower urinary tract symptoms (ICD-10 - N40.1) 06/14/2023 Benign prostatic hyperplasia with lower urinary tract symptoms (ICD-10 - N40.1) 06/13/2023 Nocturia (ICD-10 - R35.1) 06/13/2023 Benign prostatic hyperplasia with lower urinary tract symptoms (ICD-10 - N40.1) 05/16/2023 Hx of bladder cancer (ICD-10 - Z85.51) 05/16/[address] scan (ICD-10 - R93.89) 05/16/2023 Benign prostatic hyperplasia with lower urinary tract symptoms (ICD-10 - N40.1) 06/13/[address] scan (ICD-10 - R93.89) 06/14/2023 Pre-op testing (ICD-10 - Z01.818) 05/25/2023 Hx of bladder cancer (ICD-10 - Z85.51) 05/25/[address] scan (ICD-10 - R93.89) 06/13/2023 Hx of bladder cancer (ICD-10 - Z85.51) 05/16/2023 Nocturia (ICD-10 - R35.1) 05/16/2023 Other obstructive and reflux uropathy (ICD-10 - N13.8) 06/13/2023 Catheter (urine) change required (ICD-10 - Z46.6) 05/16/2023 Encounter to establish care (ICD-10 - Z76.89) 05/16/2023 History of BPH (ICD-10 - Z87.438) 05/16/2023 Urinary catheter insertion/adjustment /removal (ICD-10 - Z46.6) PLAN OF TREATMENT Pending Test Test Name Order Date UA Without Micro-Auto [id number] 05/25/2023 UA Without Micro-Auto 98248 06/13/2023 UA Without Micro-Auto 99801 05/16/2023 Culture Urine [id number] 06/14/2023 Basic Metabolic Panel 30516 06/14/2023 CBC w\ Auto Diff 25679 06/14/2023 PSA Diagnostic--38142 04/14/2023 Electrocardiogram 12 Lead Tracing-24039 06/14/2023 Insurance Providers Payer Name Payer Address Payer Phone Subscriber Number Group Number Insured Name Patient Relationship to Insured Coverage Start Date Coverage End Date [place] [address] [phone] [id number] Kolton Dial Self - patient is the insured for Life Secondary to Medicare [address] [place] [address] [id number] Kolton Dial Self - patient is the insured MEDICAL (GENERAL) HISTORY Medical History History ICD Code Chicken Pox Arthritis Migraine SINGH Cancer bladder Back Trouble Hemorrhoids Asthma BPH with LUTS CAD Surgical History Surgery Date(Month/Year) Heart Surgery 2019 Lymph node 02/2023 Hospitalization History Reason Date(Month/Year) surgery
[2023-07-20 08:24] VITALS: BP 95/68; PULSE 97; RESP 16; TEMP 36.4; O2SAT 96
[2023-07-20 08:25] VITALS: BMI 26.0
[2023-07-20 08:32] LABS: Basophils % 0.6 %; Eosinophils % 0.6 %; Hematocrit 37.3 % (37-53); Lymphocytes % 13.9 %; Mean Corpuscular HGB Conc 32.2 g/dL (30-55); Mean Corpuscular Hemoglobin 29.9 pg (27-33); Mean Platelet Volume 9.5 fL (7.4-10.4); Monocytes # 0.6 10^3/uL (0.2-0.9); Monocytes % 7.8 %; Neutrophils # 5.02 10^3/uL (1.8-7.7); Neutrophils % 71.3 %; Nucleated Red Blood Cells % 0 %; Platelet Count 412 10^3/cmm (157-399); Red Blood Count 4.01 10^6/uL (3.85-5.65); White Blood Count 7.04 10^3/uL (3.29-11.43)
[2023-07-20 08:47] LABS: Alanine Aminotransferase 19 U/L (0-41); Albumin Level 3.8 g/dL (3.5-5.2); Alkaline Phosphatase 81 U/L (40-130); Anion Gap 12.5 (5-19); Aspartate Amino Transferase 24 U/L (0-40); Blood Urea Nitrogen 18 mg/dL (8-23); Calcium 8.7 mg/dL (8.5-10.5); Carbon Dioxide 26 mmol/L (22-29); Chloride 104 mmol/L (98-107); Globulin 2.9 g/dL (1.3-4.6); Glucose 96 mg/dL (65-115); Osmolality Calculated 288 mOsm/kg (285-295); Potassium 4.5 mmol/L (3.5-5.1); Sodium 138 mmol/L (136-145); Total Bilirubin 0.3 mg/dL (0.15-1.2); Total Protein 6.7 g/dL (6.6-8.7)
[2023-07-20 09:17] LABS: Slide Review Slide Review Perform
[2023-07-20] MEDS: diphenhydrAMINE 25 mg Capsule PO (11:04)
[2023-07-20] MEDS: palonosetron 0.25 mg/5 mL SDV IVP (11:04)
[2023-07-20] MEDS: sodium chloride 0.9% 250 ML 100 ML IV (11:04)
[2023-07-20] MEDS: acetaminophen 325 mg Tablet 650 MG PO (11:04)
[2023-07-20] MEDS: famotidine 20 mg/2 mL INJ IVP (11:05)
[2023-07-20] MEDS: [UNRECOGNIZED DRUG - MIXTURE] 500 MG IV (11:40)
[2023-07-20 12:17] VITALS: BP 117/67; PULSE 83; RESP 18; TEMP 36; O2SAT 97
--- NOTE | 2023-07-20 14:00 | CT_ITS ---
WS: [id number] CT CHEST, ABDOMEN, AND PELVIS TECHNIQUE: Contrast-enhanced CT of the chest, abdomen, and pelvis with coronal and sagittal reformatt ed images. CLINICAL INFORMATION: follow up COMPARISON: CT 02/14/2023 DLP: 776.[address] scans at [facility] use at least one of these dose optimization techniques: automated e xposure control; mA and/or kV adjustment per patient size (includes targeted exams where dose is matc hed to clinical indication); or iterative reconstruction. CT CHEST: Previously described anterior mediastinal and prevascular lymphadenopathy is resolved. No mediastinal or hilar lymphadenopathy today. Normal caliber thoracic aorta. Prior sternotomy with CABG. No axilla ry lymphadenopathy. Moderate chronic emphysematous changes. Subsegmental atelectasis LEFT lower lobe. RIGHT Port-A-Cath with tip in the RIGHT atrium. CT ABDOMEN AND PELVIS: Previously described lymphadenopathy has resolved. No lymphadenopathy today in the abdomen or pelvis. Diffuse fatty filtration of the liver. Stable slight intrahepatic biliary ductal dilatation. Gallbla dder is contracted unchanged in appearance. Normal portal vein and splenic vein. Fatty atrophy of the pancreas. Dilatation of the common bile duct appears unchanged compared to previ ous. Normal caliber abdominal aorta. Aortic calcification. Adrenal glands are normal. No hydronephros is in either kidney. Small bilateral renal cysts. Some are too small to characterize. Spleen within normal limits. Normal GE junction. Splenic artery calcification. Sigmoid colon constipa tion. Constipation in the transverse colon. Prior postoperative changes lumbar spine. Prostate nodula rity appears improved compared to previous. IMPRESSION: 1. No lymphadenopathy in the chest abdomen or pelvis today. 2. Mild intrahepatic biliary ductal dilatation with dilatation of the common bile duct appears uncha nged compared to previous. This could be followed up with MRCP. Common bile duct measures approximate ly 12 mm at the pancreatic head. 3. Gallbladder is contracted unchanged from previous. 4. Small bilateral renal cysts. Some are too small to characterize. 5. Sigmoid colon and transverse colon constipation.
[2023-07-20] MEDS: iohexol 350 mg/mL 500 mL Btl (per mL) PO (14:21)
[2023-07-20] MEDS: iohexol 350 mg/mL 500 mL Btl (per mL) IV (14:21)
== END 2023-07-20 23:59 | disposition home or self-care (01) ==
LOC: RAD 07-21 00:01
PROVIDERS: Nurse Practitioner Family; PCP Family Medicine Adult Medicine; Visit Provider Internal Medicine Medical Oncology
DX: Z51.12 Encounter for antineoplastic immunotherapy (principal); C67.8 Malignant neoplasm of overlapping sites of bladder; C77.8 Secondary and unspecified malignant neoplasm of lymph nodes of multiple regions; K59.04 Chronic idiopathic constipation; R53.0 Neoplastic (malignant) related fatigue; Z79.899 Other long term (current) drug therapy; Z53.9 Procedure and treatment not carried out, unspecified reason
CPT/HCPCS: 36415; 71260; 74177; 80053; 85025; 96366; 96375; 96413; 99214; 99215; J1100; J1642; J2469; J3490; J7050; J9177; Q9967

== ENCOUNTER → 2023-07-25 10:18 | Outpatient (BNVA) | payer MEDICARE, OTHER, SELFPAY | PROVIDERS: PCP Family Medicine Adult Medicine; Visit Provider Internal Medicine Cardiovascular Disease | DX: R07.9 Chest pain, unspecified (principal); I25.10 Atherosclerotic heart disease of native coronary artery without angina pectoris; Z01.810 Encounter for preprocedural cardiovascular examination; J44.9 Chronic obstructive pulmonary disease, unspecified; C67.9 Malignant neoplasm of bladder, unspecified; C77.8 Secondary and unspecified malignant neoplasm of lymph nodes of multiple regions; R73.03 Prediabetes; F17.200 Nicotine dependence, unspecified, uncomplicated; I49.3 Ventricular premature depolarization | CPT/HCPCS: 93005; 99204 ==

== ENCOUNTER 2023-07-29 06:47 | Outpatient (CLI) | payer MEDICARE, OTHER, SELFPAY ==
--- NOTE | 2023-07-29 07:00 | USCV_ITS ---
Kolton Dial Age: 72 Gender: M : 1950 Exam Date: 07/29/2023 07:10 Ordering Phys: Katelin Mckinnon MD ([email or web address]) Technologist: [place] [facility] [place]: chest pain BP: 120 / 64 HR: 80 Rhythm: Sinus Technical Quality: Adequate MEASUREMENTS (Male / Female) Normal Values 2D ECHO LV Diastolic Diameter PLAX 3.4 cm 4.2 - 5.9 / 3.9 - 5.3 cm LV Systolic Diameter PLAX 2.4 cm IVS Diastolic Thickness 1.2 cm 0.6 - 1.0 / 0.6 - 0.9 cm IVS Systolic Thickness 1.4 cm LVPW Diastolic Thickness 1.4 cm 0.6 - 1.0 / 0.6 - 0.9 cm LVPW Systolic Thickness 1.5 cm LVOT Diameter 2.0 cm LV Ejection Fraction 2D Teich 58.0 % LV Ejection Fraction MOD 2C 73.9 % LV Ejection Fraction 2C AL 75.4 % LA Diameter 3.8 cm M-MODE Aortic Annulus Diameter 4.0 cm LA Ao Ratio MM 1.0 MV E Point Septal Separation 1.1 cm DOPPLER AV Peak Velocity 111.0 cm/s LVOT Peak Velocity 62.7 cm/s AV Area Cont Eq vti 2.0 cm squared AV Area Cont Eq pk 1.8 cm squared MV Area PHT 3.6 cm squared Mitral E to A Ratio 0.7 MV E' Velocity 36.5 cm/s Mitral E to MV E' Ratio 6.6 Mitral E to LV E' Lateral Ratio 5.2 Mitral E to LV E' Septal Ratio 9.3 TR Peak Velocity 200.7 cm/s TR Peak Gradient 16.1 mmHg TV Peak E Velocity 111.0 cm/s Right Atrial Pressure 3.0 mmHg Pulmonary Artery Systolic Pressu 19.1 mmHg RV Acceleration Time 0.1 s FINDINGS Left Ventricle Normal left ventricular size, systolic function and wall thickness, with no regional wall motion abnormalities. Left ventricular ejection fraction is estimated at 60-65 %. Abnormal relaxation filling pattern of mitral valve. Right Ventricle Normal right ventricular size and systolic function. Right ventricular systolic pressure 19.1 mmHg. Right Atrium Normal right atrial size. Left Atrium Normal left atrial size. Mitral Valve Structurally normal mitral valve. No mitral valve stenosis. Mild mitral valve regurgitation. Chordal systolic anterior motion noted. Aortic Valve Aortic valve not well visualized. Probably trileaflet aortic valve. No aortic valve stenosis. No aortic valve regurgitation. Tricuspid Valve Structurally normal tricuspid valve. Trace tricuspid valve regurgitation. Pulmonic Valve Pulmonic valve not well visualized. Pericardium No pericardial effusion. Aorta Dilated aortic root measuring 41 mm and proximal ascending aorta. IVC Inferior vena cava not visualized. CONCLUSIONS 1. Normal left ventricular size, systolic function and wall thickness, with no regional wall motion abnormalities. Left ventricular ejection fraction is estimated at 60-65 %. Abnormal relaxation filling pattern of mitral valve. 2. Mild mitral valve regurgitation. 3. Dilated aortic root measuring 41 mm. 4. No prior similar studies to compare. Katelin Mckinnon MD (Electronically Signed) Final Date: 08 August 2023 17:12 S
== END 2023-07-29 06:48 | disposition home or self-care (01) ==
LOC: RAD 06:48
PROVIDERS: PCP Family Medicine Adult Medicine; Visit Provider Internal Medicine Cardiovascular Disease
DX: I34.0 Nonrheumatic mitral (valve) insufficiency (principal); I25.10 Atherosclerotic heart disease of native coronary artery without angina pectoris; R06.02 Shortness of breath; Z01.818 Encounter for other preprocedural examination
CPT/HCPCS: 93306

== ENCOUNTER 2023-08-03 08:50 | Oncology outpatient (recurring) (ONCR) | payer MEDICARE, OTHER, SELFPAY ==
[2023-08-03 09:16] LABS: Basophils % 1.1 %; Eosinophils # 0.1 10^3/uL (0.0-0.8); Eosinophils % 3.7 %; Hematocrit 32.9 % (37-53); Lymphocytes # 0.9 10^3/uL (0.8-4.8); Lymphocytes % 31.8 %; Mean Corpuscular HGB Conc 32.2 g/dL (30-55); Mean Corpuscular Hemoglobin 30.4 pg (27-33); Mean Corpuscular Volume 94.3 fl (82-101); Mean Platelet Volume 9.8 fL (7.4-10.4); Monocytes # 0.3 10^3/uL (0.2-0.9); Neutrophils # 1.35 10^3/uL (1.8-7.7); Neutrophils % 50.7 %; Nucleated Red Blood Cells % 0 %; Platelet Count 197 10^3/cmm (157-399); Red Blood Count 3.49 10^6/uL (3.85-5.65); Red Cell Distribution Width 15.6 % (12.1-15.1); White Blood Count 2.67 10^3/uL (3.29-11.43)
[2023-08-03 09:39] LABS: Alanine Aminotransferase 18 U/L (0-41); Albumin Level 3.6 g/dL (3.5-5.2); Alkaline Phosphatase 77 U/L (40-130); Anion Gap 10.9 (5-19); Aspartate Amino Transferase 19 U/L (0-40); Blood Urea Nitrogen 16 mg/dL (8-23); Calcium 8.6 mg/dL (8.5-10.5); Carbon Dioxide 27 mmol/L (22-29); Chloride 105 mmol/L (98-107); Globulin 2.4 g/dL (1.3-4.6); Glucose 105 mg/dL (65-115); Osmolality Calculated 290 mOsm/kg (285-295); Potassium 3.9 mmol/L (3.5-5.1); Sodium 139 mmol/L (136-145); Thyroid Stimulating Hormone 2.99 uIU/mL (0.27-4.20); Total Bilirubin 0.4 mg/dL (0.15-1.2)
[2023-08-03] MEDS: sodium chloride 0.9% 250 ML 75 ML IV (11:35)
[2023-08-03] MEDS: pembrolizumab 200 MG in sodium chloride 0.9% 250 ML 516 MG IV (11:36)
[2023-08-03 12:15] VITALS: BP 111/62; PULSE 76; RESP 16; TEMP 36.2; O2SAT 95
== END 2023-08-03 23:59 | disposition home or self-care (01) ==
PROVIDERS: Nurse Practitioner Family; PCP Family Medicine Adult Medicine; Visit Provider Internal Medicine Hematology & Oncology
DX: C67.9 Malignant neoplasm of bladder, unspecified (principal); C77.8 Secondary and unspecified malignant neoplasm of lymph nodes of multiple regions; Z79.899 Other long term (current) drug therapy; Z45.2 Encounter for adjustment and management of vascular access device; R73.03 Prediabetes; Z76.89 Persons encountering health services in other specified circumstances; Z53.9 Procedure and treatment not carried out, unspecified reason
CPT/HCPCS: 80053; 84443; 85025; 96413; 99215; J1642; J7050; J9271

== ENCOUNTER 2023-08-17 08:45 | Oncology outpatient (recurring) (ONCR) | payer MEDICARE, OTHER, SELFPAY ==
--- OUTSIDE RECORDS SUMMARY | 2023-08-04 09:41 | XMS_ITS | Patient Health Record ---
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 Lining Presser Name Role Phone Vishnu Bender MD Primary Care Provider Unavailab ashish Maradiaga MD, Philip Unavailable [phone] Consuelo Laws Unavailable [phone] ALLERGIES No Known Allergies RESULTS Component Value Reference Range Notes Urine tox screen / MS if ind icated Reviewed date:11/09/2022 01:37:00 PM Interpretation: Performing Lab: Notes/Report: Saliva Swab Toxicology Scree n Reviewed date:05/23/2023 08:29:40 AM Interpretation:Consistent Performing Lab: Notes/Report: Consistent Embedded PDF Reviewed date:05/23/2023 08:29:27 AM Interpretation: Performing Lab: Notes/Report: Fentanyl: Test not performed, quantity not sufficient for confirmation. [employer], [address] [facility] [address] [address], , L ab Director: Kasandra Crews MD, CLIA ID# [id number] [employer] Results Reviewed date:05/23/2023 08:29:18 AM Interpretation: Performing Lab:[id number] [employer], [address] [facility] [address] Kasandra Crews MD Notes/Report: [employer], [address] [address], , L ab Director: Kasandra Crews MD, CLIA ID# [id number] Codeine negative 1 ng/mL Morphine negative 1 [...] 5 ng/mL Tramadol Quantification negative 5 ng/mL N-Zjvhdbbus-Uzgoynqo Quantification negative 5 ng/ mL Alprazolam negative [...] negative 1 ng/mL Phencyclidine negative 1 ng/mL REASON FOR REFERRAL No Information SOCIAL HISTORY [...] elsewhere classified (M46.1) Active confirmed Solitary sacroiliitis (151131311) Problem Low back pain (M54.5) Active confirmed Low back pain (375276265) 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.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) Active confirmed High risk drug monitoring status (062850106) Problem Other sleep disorders (G47.8) Active confirmed Sleep diso rder (11677521) Problem Other chronic pain (G89.29) Active confirmed Chronic pain (39053594) Problem Polyosteoarthritis , unspecified (M15.9) Active confirmed Osteoarthritis (033128733) Problem Pain in thoracic spine (M54.6) Active confirmed Pain in thorac ic spine (831039164) Problem Palmar fascial fibromatosis [Dupuytren] (M72.0) Active confirmed Contracture of palmar fascia (868889102) Problem Postlaminectomy syndrome, not elsewhere classified (M96.1) Active confirmed Post-lami nectomy syndrome (61059009) Problem 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 (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.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1 ; Vertebrogenic low back pain M54.51 ; Sacroiliitis, not elsewhere classified M46.1 ; Other sleep disorders G47.8 and 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 of 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 analgesic Z79.891 [facility] [address] [id number] 11/09/2022 Philip Maradiaga Postlaminectomy syndrome, not elsewhere classified M96.1 ; Vertebrogenic low back pain M54.51 ; Sacroiliitis, not elsewhere classified M46.1 ; Other sleep disorders G47.8 and prison (current) use of opiate analgesic Z79.891 [facility] [address] [place], [place] [id number] 11/15/2022 Philip Maradiaga [facility], [facility] [address] [place], [place] [id number] 02/15/2023 Philip Maradiaga Postlaminectomy syndrome, not elsewhere classified M96.1 ; Vertebrogenic low back pain M54.51 ; Sacroiliitis, not elsewhere classified M46.1 ; Other sleep disorders G47.8 and prison (current) use of opiate analgesic Z79.891 [facility], [facility] [address] [place], [place] [id number] 02/22/2023 Philip Maradiaga Postlaminectomy syndrome, not elsewhere classified M96.1 ; Vertebrogenic low back pain M54.51 ; Sacroiliitis, not elsewhere classified M46.1 ; Pain in thoracic spine M54.6 ; Other sleep disorders G47.8 and prison (current) use of opiate analgesic Z79.891 [facility], [facility] [address] [place], [place] [id number] 05/17/2023 Consuelo Min Vertebrogenic low ba ck pain M54.51 ; Other chronic pain G89.29 and 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 Plan to continue medication management 05/17/2023 prison (current) use of opiate analgesic (ICD-10 - [...] Patient has not had a sleep study. [place] score = 6. Will consider a sleep [...] Patient has not had a sleep study. [place] score = 6. Will consider a sleep [...] Patient has not had a sleep study. [place] score = 6. Will consider a sleep [...] Patient has not had a sleep study. [place] score = 6. 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 Sampson at [facility] and is scheduled for another later today PLAN OF TREATMENT Next Appt Details Provider Name:Philip Medina son, 08/16/2023 07:10:00 AM, [address] [facility], [place], [place], [id number], Insurance Providers Payer Name Payer Address Payer Phone Subscriber Number Group Number Insured Name Patient Relationship to Insured Coverage Start Date Coverage End Date WPS Medicare Part B Claims Department [address] [address] [place] [address] [id number] Kolton Dial Self - patient is the insured [email or web address] [address] [place] [address] [id number] YojanaKolton gottlieb Self - patient is the [...] Arthroscopic medial menisect eric, left performed at [facility] [place], [place], [place] by Dae Capellan, 2013 Lumbar disc (spacers) surgery, 2013 Lumbar fusion L2-5, performe d at [facility] in [place], [place], 2014 CABG x 2 vessels, 08/2018 Cystourethroscopy, performed at [facility] in [place], [place] by Dr. Pierre, 02/2019 Transurethral resection of b ladder tumor, performed at [facility] in [place], [place], 04/2019 Biopsy of lymphnodes (bladder cancer), p erformed by Dr. Bender, 02/2023 Port placement, performed in [place], [place], 04/2023
[2023-08-17 08:50] VITALS: BP 122/78; PULSE 88; RESP 16; TEMP 36.4; O2SAT 98
[2023-08-17 09:05] LABS: Basophils % 0.9 %; Eosinophils # 0.2 10^3/uL (0.0-0.8); Eosinophils % 3.8 %; Hematocrit 37.3 % (37-53); Lymphocytes # 0.9 10^3/uL (0.8-4.8); Lymphocytes % 19.2 %; Mean Corpuscular HGB Conc 32.2 g/dL (30-55); Mean Corpuscular Hemoglobin 30.7 pg (27-33); Mean Corpuscular Volume 95.4 fl (82-101); Mean Platelet Volume 10.4 fL (7.4-10.4); Monocytes # 0.4 10^3/uL (0.2-0.9); Monocytes % 8.3 %; Neutrophils # 3.15 10^3/uL (1.8-7.7); Neutrophils % 67.2 %; Nucleated Red Blood Cells % 0 %; Platelet Count 204 10^3/cmm (157-399); Red Blood Count 3.91 10^6/uL (3.85-5.65); Red Cell Distribution Width 15.9 % (12.1-15.1); White Blood Count 4.69 10^3/uL (3.29-11.43)
[2023-08-17 10:02] LABS: Alanine Aminotransferase 14 U/L (0-41); Albumin Level 3.9 g/dL (3.5-5.2); Alkaline Phosphatase 78 U/L (40-130); Anion Gap 12.1 (5-19); Aspartate Amino Transferase 19 U/L (0-40); Blood Urea Nitrogen 15 mg/dL (8-23); Calcium 9.1 mg/dL (8.5-10.5); Carbon Dioxide 26 mmol/L (22-29); Chloride 107 mmol/L (98-107); Globulin 2.4 g/dL (1.3-4.6); Glucose 102 mg/dL (65-115); Osmolality Calculated 293 mOsm/kg (285-295); Potassium 4.1 mmol/L (3.5-5.1); Sodium 141 mmol/L (136-145); Thyroid Stimulating Hormone 0.14 uIU/mL (0.27-4.20); Total Bilirubin 0.3 mg/dL (0.15-1.2); Total Protein 6.3 g/dL (6.6-8.7)
[2023-08-17] MEDS: sodium chloride 0.9% 250 ML 75 ML IV (11:52)
[2023-08-17] MEDS: acetaminophen 325 mg Tablet 650 MG PO (11:54)
[2023-08-17] MEDS: diphenhydrAMINE 25 mg Capsule PO (11:54)
[2023-08-17] MEDS: famotidine 20 mg/2 mL INJ IVP (11:55)
[2023-08-17] MEDS: palonosetron 0.25 mg/5 mL SDV IVP (11:57)
[2023-08-17] MEDS: [UNRECOGNIZED DRUG - MIXTURE] 500 MG IV (12:24)
[2023-08-17 13:38] VITALS: BP 111/55; PULSE 80; TEMP 36.3; O2SAT 94
== END 2023-08-17 23:59 | disposition home or self-care (01) ==
PROVIDERS: PCP Family Medicine Adult Medicine; Visit Provider Internal Medicine Medical Oncology
DX: Z51.11 Encounter for antineoplastic chemotherapy; C68.0 Malignant neoplasm of urethra; C79.11 Secondary malignant neoplasm of bladder; D70.1 Agranulocytosis secondary to cancer chemotherapy; Z79.899 Other long term (current) drug therapy; C77.8 Secondary and unspecified malignant neoplasm of lymph nodes of multiple regions
CPT/HCPCS: 80053; 84443; 85025; 96367; 96375; 96413; 99215; J1100; J1642; J2469; J3490; J7050; J9177

== ENCOUNTER 2023-08-24 11:15 | Oncology outpatient (recurring) (ONCR) | payer MEDICARE, OTHER, SELFPAY ==
--- OUTSIDE RECORDS SUMMARY | 2023-08-18 11:34 | XMS_ITS | Patient Health Record ---
Author Name Unknown Organization [email or web address] Address [address] [place], [place] [address] Care Team Providers Care Emergency Worker Name Role Phone Vishnu Bender MD Primary Care Provider Unavailab ashish Maradiaga MD, Philip Unavailable [phone] Consuelo Laws Unavailable [phone] ALLERGIES No Known Allergies RESULTS Component Value Reference Range Notes Saliva Swab Toxicology Scree n Reviewed date:05/23/2023 08:29:40 AM Interpretation:Consistent Performing Lab: Notes/Report: Consistent Urine tox screen / MS if ind icated Reviewed date:11/09/2022 01:37:00 PM Interpretation: Performing Lab: Notes/Report: Embedded PDF Reviewed date:05/23/2023 08:29:27 AM Interpretation: Performing Lab: Notes/Report: Fentanyl: Test not performed, quantity not sufficient for confirmation. [employer], [address] [facility] [address], [place] [address], , L ab Director: Kasandra Crews MD, CLIA ID# [id number] [employer] Results Reviewed date:05/23/2023 08:29:18 AM Interpretation: Performing Lab:[id number] [employer], [address] [address] [facility] [address] Kasandra Crews MD Notes/Report: [employer], [address] [address], , L ab Director: Kasandra Crews MD, CLIA ID# [id number] Codeine negative 1 ng/mL Morphine negative 1 [...] 5 ng/mL Tramadol Quantification negative 5 ng/mL T-Ecfqqijkg-Wgxqfkxr Quantification negative 5 ng/ mL Alprazolam negative [...] 1 ng/mL REASON FOR REFERRAL No Information MEDICATIONS Medication SIG (Take, Route, Frequency, Duration) Notes Start Date End Date Status tamsulosin 0.4 mg 1 cap orally 2 times a day Active tiZANidine 6 mg 1 cap po orally TID prn spasm Active Voltaren Topical 1% as directed applied topically 4 times a day Active acetaminophen-oxycodone 325 mg-10 mg 1 tab orally Q4H prn pain (max 4/day; hold within 4H of planned sleep) for 30 day(s) Do not fill prior to 08/24/23. ICD-10: G89.29 08/16/2023 Active acetaminophen-oxycodone 325 mg-10 mg 1 tab orally Q4H prn pain (max 4/day; hold within 4H of planned sleep) for 30 day(s) Do not fill prior to 09/23/23. ICD-10: G89.29 08/16/2023 Active Benadryl 25 mg 1 cap orally 3 times a day Active acetaminophen-oxycodone 325 mg-10 mg 1 tab orally Q4H prn pain (max 4/day; hold within 4H of planned sleep) for 30 day(s) Do not fill prior to 10/23/23. ICD-10: G89.29 08/16/2023 Active finasteride 5 mg 1 tab(s) orally once a day for 30 day(s) 02/15/2023 Active Neuriva Brain performance Plus Therapeutic Multiple Vitamins 1 cap orally once a day Active OLANZapine 5 mg 1 tab(s) orally once a day for 30 day(s) 05/17/2023 Active prochlorperazine 10 mg 1 tab(s) orally 3 times a day 05/17/2023 Active tadalafil 5 mg 1 tab orally once a day, as directed Active SOCIAL HISTORY Tobacco Use: Social History [...] former smoker When did you stop smoking? 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 (Z79.891) Active confirmed High risk drug monitoring status (199495462) Problem Other sleep disorders (G47.8) Active confirmed Sleep diso rder (40135795) Problem Other chronic pain (G89.29) Active confirmed Chronic pain (73468515) Problem Polyosteoarthritis , unspecified (M15.9) Active confirmed Osteoarthritis (178886487) Problem Pain in thoracic spine (M54.6) Active confirmed Pain in thorac ic spine (547612356) Problem Palmar fascial fibromatosis [Dupuytren] (M72.0) Active confirmed Contracture of palmar fascia (097643549) Problem Postlaminectomy syndrome, not elsewhere classified (M96.1) Active confirmed Post-lami nectomy syndrome (09090377) Problem Other group home (current) drug therapy (Z79.899) Active confirmed Long-term current use of drug therapy (549083873) Problem Vertebrogenic low back pain (M54.51) Active confirmed Pain in l umbar spine (742699661) Encounters Encounter Location Date Provider Diagnosis [facility], [address] [id number] 08/24/2022 Philip Maradiaga Postlaminectomy syndrome, not elsewhere classified M96.1 ; Vertebrogenic low back pain M54.51 ; Sacroiliitis, not elsewhere classified M46.1 ; Other sleep disorders G47.8 and nursing home (current) use of opiate analgesic Z79.891 [facility], [address] [id number] 11/09/2022 Philip Maradiaga Postlaminectomy syndrome, not elsewhere classified M96.1 ; Vertebrogenic low back pain M54.51 ; Sacroiliitis, not elsewhere classified M46.1 ; Other sleep disorders G47.8 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 Z79.891 [facility], [address] [id number] 11/15/2022 Philip Maradiaga [facility], [address] [id number] 02/15/2023 Philip Maradiaga Postlaminectomy syndrome, not elsewhere classified M96.1 ; Vertebrogenic low back pain M54.51 ; Sacroiliitis, not elsewhere classified M46.1 ; Other sleep disorders G47.8 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 Z79.891 [facility], [address] [id number] 02/22/2023 Philip Maradiaga Postlaminectomy syndrome, not elsewhere classified M96.1 ; Vertebrogenic low back pain M54.51 ; Sacroiliitis, not elsewhere classified M46.1 ; Pain in thoracic spine M54.6 ; Other sleep disorders G47.8 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 Z79.891 [facility], [facility] [address] [place], [place] [id number] 05/17/2023 Consuelo Min Vertebrogenic low ba ck pain M54.51 ; Other chronic pain G89.29 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 Z79.891 [facility], [facility] [address] [place], [place] [id number] 08/16/2023 Consuelo Min Vertebrogenic low ba ck pain M54.51 and Other chronic pain G89.29 ASSESSMENTS Encounter Date Diagnosis Assessment Notes Treatment Notes Treatment Clinical Notes 08/24/2022 Postlaminectomy syndrome, not elsewhere classified (ICD-10 [...] - M54.51) Chronic axial lumbosacral spine pain 08/16/2023 Vertebrogenic low back pain (ICD-10 - M54.51) Chronic axial lumbosacral spine pain 08/16/2023 Other chronic pain (ICD-10 - G89.29) Patient reports that 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 Plan to continue oral opioid medication management 02/22/2023 Vertebrogenic low back pain (ICD-10 - [...] benefit. 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 [place] score = 6. Will consider a sleep [...] Patient has not had a sleep study. [place] score = 6. Will consider a sleep [...] Patient has not had a sleep study. [place] score = 6. Will consider a sleep [...] Patient has not had a sleep study. [place] score = 6. Will consider a sleep [...] advised on 05/19/21 that due to the Federal Government concerns and actions, any suspected patient [...] advised on 05/19/21 that due to the [employer] Government concerns and actions, any suspected patient [...] Tool score 0 - low risk 11/09/2022 nursing home (current) use of opiate analgesic [...] advised on 05/19/21 that due to the [facility] Government concerns and actions, any suspected patient [...] screen today; random screens per protocol 02/22/2023 nursing home (current) use of opiate analgesic [...] advised on 05/19/21 that due to the [facility] Government concerns and actions, any suspected patient [...] area to see if cancerous or not 08/24/2022September eRx was eCancelled and printed for patient to hand carry due to travel during the . Patient verbalized understanding that future No-Shows will result in termination of care at this facility 11/09/2022 Other 02/15/2023 Other Above prescript ions printed due to eRx transmission issues 05/17/2023 Other Patient reports he has completed one chemotherapy treatment with Dr. Sampson at [facility] and is scheduled for another later today 08/16/2023 Other Patient reports he is still taking weekly chemotherapy treatment with Dr. Sampson at [facility] PLAN OF TREATMENT Next Appt Details Provider Name:Philip Medina son, 11/08/2023 07:40:00 AM, [address] [facility], [place], [place], [id number], Insurance Providers Payer Name Payer Address Payer Phone Subscriber Number Group Number Insured Name Patient Relationship to Insured Coverage Start Date Coverage End Date WPS Medicare Part B Claims Department [address] [address] [place] [address] [id number] Kol[employer] Dial Self - patient is the insured FOR LIFE [address] [place] [address] [id number] Kolton Dial Self - patient is the [...] Arthroscopic medial menisect eric, left performed at [facility] [place], [place], [place] by Dae Capellan, 2013 Lumbar disc (spacers) surgery, 2013 Lumbar fusion L2-5, performe d at [facility] in [place], [place], 2014 CABG x 2 vessels, 08/2018 Cystourethroscopy, performed at [facility] in [place], [place] by Dr. Pierre, 02/2019 Transurethral resection of b ladder tumor, performed at [facility] in [place], [place], 04/2019 Biopsy of lymphnodes (bladder cancer), p erformed by Dr. Bender, 02/2023 Port placement, performed in [place], [place], 04/2023
--- OUTSIDE RECORDS SUMMARY | 2023-08-18 11:34 | XMS_ITS | Patient Health Record ---
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 Machine Operator Name Role Phone Vishnu Bender MD Primary Care Provider Unavailab ashish Paul Andres Unavailable [phone] Richmond Rivera Unavailable [phone] ALLERGIES No Known Allergies RESULTS Component Value Reference Range Notes UA Without Micro-Auto [id number] (Not yet reviewed by provider) Interpretation: Performing Lab: Notes/Report: Color Yellow Clarity clear Glucose - Bili - Ketones - Sp Phenix 1.015 Blood Trace pH 6.0 Protein - Urobili - Nitrites - Leukocytes - PSA Diagnostic--[id number] Reviewed date:06/03/2023 10:21:25 AM Interpretation: Performing Lab: [...] Provider Speciality Family Med icine Referred Organization [facility] Referred Provider Richmond Rivera Referred Address [address] [facility] [facility], [place],[address], Referred Provider Specialty Urology Referral Priority Routine [...] of urinary organ, unspecified (C68.9) Active confirmed 746659229 Problem Other obstructive and reflux uropathy (N13.8) Active confirmed 19014142 Problem Nocturia (R35.1) Active confirmed Noctu rolando (083947423) Problem Benign prostatic hyperplasia with lower urinary tract symptoms (N40.1) Active confirmed 036351694 Problem Pre-op testing (Z01.818) Active confirmed Pre-procedure evaluation check (973591038) Problem Hx of bladder cancer (Z85.51) Active confirmed 814686489 Problem Abnormal finding on CT scan (R93.89) Active confirmed 884249452 VITAL SIGNS Heart Rate 95 /min 06/13/2023 Temperature 97.3 degrees Fahrenheit 06/13/2023 Height-cm 172.72 cm 06/13/2023 Blood pressure diastolic 77 mm Hg 06/13/2023 Weight-kg 77.56 kg 06/13/2023 Height 68 in 06/13/2023 Blood pressure systolic 114 mm Hg 06/13/2023 Weight 171 lbs 06/13/2023 BMI 26 kg/m2 06/13/2023 Encounters Encounter Location Date Provider Diagnosis [facility] [address] [place] [address], [place] [address] 04/14/2023 Richmond Rivera Prostate cancer screening Z12.5 [facility] [address] [place] [address], [place] [address] 06/14/2023 Richmond Rivera Benign prostatic hyperplasia with lower urinary tract symptoms N40.1 and Pre-op testing Z01.818 [facility] [address] [place] [address] 06/20/2023 [facility] [address] [place] [address] 06/20[facility]2023 [facility] [address] [place] [address] 05/16/2023 Andres Beverly Hx of bladder cancer Z85.51 ; Abnormal finding on CT scan R93.89 ; Benign prostatic hyperplasia with lower urinary tract symptoms N40.1 ; Nocturia R35.1 ; Other obstructive and reflux uropathy N13.8 ; Encounter to establish care Z76.89 ; History of BPH Z87.438 and Urinary catheter insertion/adjustment/ removal Z46.6 [facility] [address] [place] [address] 06/13/2023 Andres Paul Benign prostatic hyperplasia with lower urinary tract symptoms N40.1 ; Nocturia R35.1 ; Abnormal finding on CT scan R93.89 ; Hx of bladder cancer Z85.51 and Catheter (urine) change required Z46.6 [facility] [address] [place] [address] 05/25/2023 Richmond Rivera Benign prostatic hyperplasia with [...] Test Name Order Date UA Without Micro-Auto [id number] 05/25/2023 UA Without Micro-Auto 61869 06/13/2023 UA Without Micro-Auto 69479 05/16/2023 Culture Urine 80408 06/14/2023 Basic Metabolic Panel 35184 06/14/2023 CBC w\ Auto Diff 28432 06/14/2023 PSA Diagnostic--[id number] 04/14/2023 Electrocardiogram 12 Lead Tracing-38783 06/14/2023 Insurance Providers Payer Name Payer Address Payer Phone Subscriber Number Group Number Insured Name Patient Relationship to Insured Coverage Start Date Coverage End Date [place] [address] [phone] [id number] Kolton Dial Self - patient is the insured for Life Secondary to Medicare [address] [place] [address] [id number] Kolton Dial Self - patient is the insured MEDICAL (GENERAL) HISTORY Medical History History ICD Code Chicken Pox Arthritis Migraine SINGH Cancer bladder Back Trouble Hemorrhoids Asthma BPH with LUTS CAD Surgical History Surgery Date(Month/Year) Lymph node 02/2023 Heart Surgery 2018 Hospitalization History Reason Date(Month/Year) surgery
[2023-08-24 11:58] VITALS: BP 100/65; PULSE 86; RESP 17; TEMP 37; O2SAT 96; BMI 26.7
[2023-08-24 12:17] LABS: Basophils % 0.2 %; Eosinophils # 0.3 10^3/uL (0.0-0.8); Lymphocytes # 0.8 10^3/uL (0.8-4.8); Lymphocytes % 16.2 %; Mean Corpuscular HGB Conc 32.2 g/dL (30-55); Mean Corpuscular Hemoglobin 30.5 pg (27-33); Mean Corpuscular Volume 94.9 fl (82-101); Mean Platelet Volume 10.8 fL (7.4-10.4); Monocytes # 0.5 10^3/uL (0.2-0.9); Monocytes % 9.9 %; Neutrophils # 3.11 10^3/uL (1.8-7.7); Neutrophils % 67.1 %; Nucleated Red Blood Cells % 0 %; Platelet Count 186 10^3/cmm (157-399); Red Cell Distribution Width 15.4 % (12.1-15.1); White Blood Count 4.64 10^3/uL (3.29-11.43)
[2023-08-24 12:41] LABS: Alanine Aminotransferase 17 U/L (0-41); Albumin Level 3.8 g/dL (3.5-5.2); Alkaline Phosphatase 72 U/L (40-130); Anion Gap 10.6 (5-19); Aspartate Amino Transferase 21 U/L (0-40); Blood Urea Nitrogen 20 mg/dL (8-23); Calcium 8.9 mg/dL (8.5-10.5); Carbon Dioxide 31 mmol/L (22-29); Chloride 106 mmol/L (98-107); Globulin 2.4 g/dL (1.3-4.6); Glucose 101 mg/dL (65-115); Osmolality Calculated 299 mOsm/kg (285-295); Potassium 4.6 mmol/L (3.5-5.1); Sodium 143 mmol/L (136-145); Total Bilirubin 0.4 mg/dL (0.15-1.2); Total Protein 6.2 g/dL (6.6-8.7)
[2023-08-24] MEDS: diphenhydrAMINE 25 mg Capsule PO (16:01)
[2023-08-24] MEDS: acetaminophen 325 mg Tablet 650 MG PO (16:01)
[2023-08-24] MEDS: sodium chloride 0.9% 250 ML 75 ML IV (16:02)
[2023-08-24] MEDS: famotidine 20 mg/2 mL INJ IVP (16:03)
[2023-08-24] MEDS: ondansetron 2 mg/ML SDV 2 mL 8 MG IVP (16:04)
[2023-08-24] MEDS: pembrolizumab 200 MG in sodium chloride 0.9% 250 ML 516 MG IV (16:35)
[2023-08-24] MEDS: [UNRECOGNIZED DRUG - MIXTURE] 500 MG IV (17:17)
[2023-08-24 18:10] VITALS: BP 102/66; PULSE 72; RESP 17; TEMP 36.1; O2SAT 96
== END 2023-08-24 23:59 | disposition home or self-care (01) ==
PROVIDERS: PCP Family Medicine Adult Medicine; Visit Provider Internal Medicine Medical Oncology
DX: Z51.12 Encounter for antineoplastic immunotherapy (principal); C67.9 Malignant neoplasm of bladder, unspecified; C77.8 Secondary and unspecified malignant neoplasm of lymph nodes of multiple regions
CPT/HCPCS: 80053; 85025; 96367; 96375; 96413; 96417; J1100; J1642; J2405; J3490; J7050; J9177; J9271

== ENCOUNTER 2023-09-14 10:16 | Oncology outpatient (recurring) (ONCR) | payer MEDICARE, OTHER, SELFPAY ==
[2023-09-14 10:24] VITALS: BP 112/65; PULSE 85; RESP 16; TEMP 36.2; O2SAT 96
[2023-09-14 10:39] LABS: Basophils # 0.1 10^3/uL (0.0-0.1); Basophils % 1.7 %; Eosinophils # 0.1 10^3/uL (0.0-0.8); Eosinophils % 2.4 %; Hematocrit 38.2 % (37-53); Lymphocytes % 32.9 %; Mean Corpuscular HGB Conc 31.9 g/dL (30-55); Mean Corpuscular Hemoglobin 30.9 pg (27-33); Mean Corpuscular Volume 96.7 fl (82-101); Mean Platelet Volume 10.3 fL (7.4-10.4); Monocytes # 0.4 10^3/uL (0.2-0.9); Monocytes % 13.1 %; Neutrophils # 1.42 10^3/uL (1.8-7.7); Neutrophils % 49.2 %; Nucleated Red Blood Cells % 0 %; Platelet Count 223 10^3/cmm (157-399); Red Blood Count 3.95 10^6/uL (3.85-5.65); Red Cell Distribution Width 15.2 % (12.1-15.1); White Blood Count 2.89 10^3/uL (3.29-11.43)
[2023-09-14 11:14] LABS: Alanine Aminotransferase 11 U/L (0-41); Albumin Level 3.8 g/dL (3.5-5.2); Alkaline Phosphatase 78 U/L (40-130); Anion Gap 12.3 (5-19); Aspartate Amino Transferase 16 U/L (0-40); Blood Urea Nitrogen 19 mg/dL (8-23); Calcium 8.8 mg/dL (8.5-10.5); Carbon Dioxide 27 mmol/L (22-29); Chloride 107 mmol/L (98-107); Globulin 2.2 g/dL (1.3-4.6); Glucose 119 mg/dL (65-115); Osmolality Calculated 297 mOsm/kg (285-295); Potassium 4.3 mmol/L (3.5-5.1); Sodium 142 mmol/L (136-145); Thyroid Stimulating Hormone 3.09 uIU/mL (0.27-4.20); Total Bilirubin 0.3 mg/dL (0.15-1.2)
[2023-09-14] MEDS: pembrolizumab 200 MG in sodium chloride 0.9% 250 ML 516 MG IV (12:37)
[2023-09-14 13:32] VITALS: BP 126/74; PULSE 70; TEMP 36.4; O2SAT 98
== END 2023-09-27 23:59 | disposition home or self-care (01) ==
PROVIDERS: PCP Family Medicine Adult Medicine; Visit Provider Internal Medicine Medical Oncology
DX: C68.9 Malignant neoplasm of urinary organ, unspecified (principal); C67.9 Malignant neoplasm of bladder, unspecified; C77.8 Secondary and unspecified malignant neoplasm of lymph nodes of multiple regions; K59.09 Other constipation; D70.1 Agranulocytosis secondary to cancer chemotherapy; Z79.899 Other long term (current) drug therapy; Z51.11 Encounter for antineoplastic chemotherapy
CPT/HCPCS: 80053; 84443; 85025; 96413; 99214; J1642; J7050; J9271